=== PATIENT | male | born 1960 | race Caucasian/White ===

== ENCOUNTER → 2016-09-21 | Outpatient (CLI) | payer OTHER ==
[~2016-09-21] MED LIST: LISI-729 PO; PRED20TA PO; VNTHFA/IN INH
--- NOTE | 2016-09-22 06:31 | PAP/PSG TECHNICIAN REPORT ---
[facility] Celery Cutter Polysomnogram Report Study name: None Report date: 09/22/2016 Study date: 09/21/2016 Referring Physician: Zelda Guzman M.D. Name: AZEB HOUSTON Barbra Interpreting Physician: Franco Guzman M.D. Date of : 1960 Celery Cutter: VONNIE Pan. Sex: Male Age: 56 StudyType: PSG PAP Weight: 306 lbs Height: 56 years, Height 6' 0" Neck Circum: BMI: 41.5 Medications: Prinivil 5mg, Albuterol 108mcg/act Patient History Study started on room air with BIPAP 18/14 in room #6. ETCO2 could not be monitored with Bipap. 56 yr old male here tonight for a bipap titration study . He had a split study on 10/25/2011 that had an AHI of 108 and a split night psg was performed and he was treated with bipap with a setting of 18/14. He has been compliant with treatment but never wakes up feeling rested and complains of EDS. He is here tonight to see if he is having nocturnal hypoxemia and / or PLMD. His neck circ=20.75inches. Parameters Monitored NPSG: E1-M2, E2-M1, Fp1-M2, Fp2-M1, F3-M2, F4-M2, F4-M1, C3-M2, C4-M2, C4-M1, O1-M2, O2-M2, O2-M1, T3-M2, T4-M1, P3-M2, P4-M1, CHIN1, CHIN2, HR, EKG, Legs, PFLOW, SNOR, FLOW, CFLOW, Tidal Volume, THOR, ABDO, SpO2, PLTH, CPRESS, ETCO2 Wave, ETCO2, pH Sleep Architecture Sleep Stages Time at Lights Off 8:40:48 PM STAGES Time (min.) TST (%) Time at Lights On 5:30:48 AM Wake 58.5 -- Total Recording Time (TRT) 530.00 min. N1 25.5 5 Total Sleep Period (TSP) 511.5 min. N2 283.5 60 Total Sleep Time (TST) 471.0min. N3 73.0 15 Awake Time 59.0 min. REM 89.0 19 Wake after Sleep Onset 52.0 min. Sleep Efficiency (SE) 89 % Sleep Onset Latency (ROSENDO) 7.0 min. Number of Stage 1 Shifts None Awakenings 30 Stage Changes 113 Number of REM periods 12 REM 89.0 19 REM Latency 124.5 min. NREM 382.0 81 Body Position Analysis Supine Right Left Side Prone Vertical Total Sleep Time (min.) 249.9 95.1 0.0 95.11 176.6 0.0 Total Sleep Time (%) 47% 20% 0% 20 33% N/A% Total Sleep Time REM (min.) 74.5 0.0 0.0 None 14.5 0.0 Total Sleep Time NREM (min.) 145.8 95.1 0.0 None 141.1 0.0 Intermittent Wake (min.) 29.7 7.8 0.0 None 21.0 0.0 Total Sleep Period (%) 47% None None None None None Arousals Myoclonus (PLM) * Events Count Index Events Count Index Spontaneous 31 4 Events Awake (PLMW) 54 55.4 Respiratory 4 0.5 Events Asleep w/ Arousal (PLMA) 40 5.1 PLM 39 5 Events Asleep w/o Arousal (PLMS) 191 24.3 Snoring 2 0 Total Asleep 231 29.4 Total 76 10 Total 285 32 Respiratory Analysis * CA OA MA CH H RERA Total Count 0 1 0 0 7 0 8 Index 0.0 0.1 0.0 0 0.9 0 1.0 Mean Duration 0.0 13.3 0.0 0.00 25.0 0.0 23.6 Longest Duration 0.0 13.3 0.0 0.00 0.0 0.0 52.7 Respiratory Event Summary Total Supine ~Supine Right Left Prone REM NREM Apneas Count 1 1 0 0 N/A 0 0 1 Index 0.1 0 0 0.0 N/A 0 0 0 Hypopneas (4% Desat) Count 7 6 1 0 N/A 1 0 7 Index 0.9 1.6 0 0.0 N/A 0.4 0.0 1.1 Apneas & All Hypopneas Count 8 7 1 0 N/A 1 0 8 Index 1.0 2 0 0 N/A 0 0.0 1.3 Respiratory Events (Campaign Specialist+All Hyp+RERA) Count 8 7 1 0 N/A 1 0 8 Index 1.0 2 0 0.0 N/A 0.4 0.0 1.3 Respiratory Related Arousal Count 4 7 1 0 N/A 1 0 4 Index 0.5 1 0 0 N/A 0 0 1 Snoring Analysis Supine Right Left Prone REM NREM Total Snore duration 1.2 min Snores count 50 1 N/A 4 6 49 55 Snore mean duration 1.3 Sec Snores index 14 1 N/A 2 4.0 7.7 7.0 TST with snoring (%) 0.2% Desaturation Event Summary: Minimum %SpO2 Event Count Mean/Min/Max Duration(sec.) Desaturation Index % Time In Bed > 90 35 26.0 / 8.8 / 60.0 4.7 86.1 86 - 90 2 12.1 / 9.0 / 15.3 1.7 13.9 81 - 85 0 N/A 0.0 0.0 76 - 80 0 N/A 0.0 0.0 71 - 75 0 N/A 0.0 0.0 66 - 70 0 N/A 0.0 0.0 61 - 65 0 N/A 0.0 0.0 56 - 60 0 N/A 0.0 0.0 51 - 55 0 N/A 0.0 0.0 < 50 0 N/A 0.0 0.0 Total REM NREM Awake <50% 0.0 min. 0.0 min. 0.0 min. 0.0 min. 51 - 60% 0.0 min. 0.0 min. 0.0 min. 0.0 min. 61 - 70% 0.0 min. 0.0 min. 0.0 min. 0.0 min. 71 - 80% 0.0 min. 0.0 min. 0.0 min. 0.0 min. 81 - 90% 72.6 min. 0.6 min. 64.6 min. 7.5 min. 91 - 100% 451.0 min. 88.3 min. 312.8 min. 49.9 min. Average 93 93 93 93 Minimum SpO2 87 90 87 87 Desaturation Event Index 4.2 1.3 4.6 6.2 # Desat. Events below 89% 1 N/A 1 N/A Time(%) with Saturation below 89% 2.4 0.0 2.3 0.1 Time(min.) with Saturation below 89% 12.5 0.0 12.2 0.3 Time (mins) REM (mins) NREM (mins) % of TST SpO2 Below 90% 9 1 N8 8.1 SpO2 Below 88% 0 0 0 0 Heart Rate Analysis Min (bpm) Max (bpm) Average (bpm) Awake 50 127 64 NREM 48 90 59 REM 45 127 56 Overall 45 127 58 Supplemental O2 Values Minimum O2 level: None Value Start Time End Time Celery Cutter Comments Mr. Houston slept in the right, supine and prone positions. Cardiac arrhythmia and PLM's noted, please see print outs. No bruxism noted. PAP initiated at an IPAP of +18 CMH2O and an EPAP of +14 CMH2O and up titrated to: IPAP +17RJJ1L, EPAP +15 CMH2O for six respiratory events and some mild snoring. He brought his own full face mask to be used during titration. He did not use the restroom during the night. He stated that he slept better than usual. The final report will be interpreted and signed by a sleep physician. The completed physician report will then be placed in the patient medical record. Therapy Event: Therapy (cm H20) Total Time at Pressure (min.) 490.2 39.3 TST at Pressure (min.) 445.2 25.8 # Periods 1 1 Sleep Onset (min.) 7.0 0.0 REM Onset (min.) 131.5 14.3 Sleep Efficiency % 90 65 Wakefulness (%) 9.2 34.4 Wakefulness (min.) 45.0 13.5 NREM 1 (%) 4.4 10.2 NREM 1 (min.) 21.5 4.0 NREM 2 (%) 55.8 24.9 NREM 2 (min.) 273.7 9.8 NREM 3 (%) 14.9 0.0 NREM 3 (min.) 73.0 0.0 REM (%) 15.7 30.6 REM (min.) 77.0 12.0 # Arousals 71 5 Arousal Index 9.6 11.6 # Snore 32 23 Snore Index 4.3 53.6 AHI 0.9 2.3 AHI Supine 1.9 2.3 AHI Non-Supine 0.2 N/A NREM AHI 1.1 4.4 REM AHI 0.0 0.0 RDI 0.9 2.3 # Obstructive 1 0 # Central Ap 0 0 # Mixed 0 0 # Hypopneas 6 1 RERAS 0 0 Total Respiratory Events 7 1 Time Below SpO2 89.00% (min.) 12.2 0.0 Mean NREM SpO2 (%) 93 95 Mean REM SpO2 (%) 93 94 Mean Sleep SpO2 (%) 93 95 Min NREM SpO2 (%) 87 92 Min REM SpO2 (%) 90 92 Position Supine (min.) 194.5 25.8 Position Non-supine (min.) 250.7 0.0 LM Index Sleep 30.7 7.0 LM Index NREM 35.8 0.0 LM Index REM 6.2 15.0 Mean Heart Rate (bpm) 59 55 Min Heart Rate (bpm) 46 45
--- NOTE | 2016-09-29 09:19 | POLYSOMNOGRAPH REPORT ---
REFERRING PERSON: Dr. Kain Guzman. WELDER FITTER APPRENTICE: Jeannie Carpenter. HISTORY OF PRESENT ILLNESS: Mr. Houston is a 56-year-old male sent to the sleep lab for a titration study. He is currently on bilevel therapy at at home. He had a split night sleep study performed on 10/25/2011 which showed a pretreatment AHI of 108. Despite using BiPAP regularly, he never wakes feeling rested and complains of excessive daytime sleepiness. This study was done tonight to ensure he is on adequate pressure as well as to evaluate him for nocturnal hypoxemia as well as periodic limb movements of sleep. Following the technical and digital specifications of the [place] [employer] (AASM) a standard diagnostic polysomnogram was performed monitoring EEG, EOG, EMG (chin and leg deviations), oxygen saturation, body position, digital video, respiratory effort and airflow.? The sleep Stage and event scoring was based on the AASM Manual for the Scoring of Sleep and Associated Events 2007 edition.? Apneas are defined as a drop in the peak thermal sensor excursion by >90% of baseline for at least 10 seconds.? Hypopneas were scored using the 4% oxygen desaturation rule (4A-[employer]ic[employer]) and a decrease in the nasal pressure excursions by >30% of baseline for at least 10 seconds.? Respiratory effort-related arousal (RERA's) is defined as a sequence of breaths lasting at least 10 seconds characterized by increasing respiratory effort or flattening of the nasal pressure waveform leading to an arousal from sleep when the sequence of breaths does not meet criteria for an apnea or hypopnea.? Apnea Hypopnea index (AHI) is defined as the number of apneas and hypopneas occurring in an hour of sleep.? Respiratory disturbance index (RDI) is defined as the number of apneas, hypopneas, and RERA's occurring in an hour of sleep. This patient's total sleep period time was 511.5 minutes. Total sleep time was 471 minutes. Sleep efficiency was 89%. Latency to sleep onset was 7 minutes with wake after sleep onset of 52 minutes. Total non-REM sleep time was 382 minutes. He spent 5% of that time in N1 sleep, 60% in N2 sleep and 15% in N3 sleep. REM latency was 124.5 minutes. Total REM sleep time was 89 minutes or 19% of total sleep time. There were 76 cortical arousals from sleep. Two of these arousals were due to snoring, 39 due to periodic limb movements of sleep, 4 were due to respiratory events, and 31 were spontaneous. There were 231 periodic limb movements noted on this test. Limb movement index was 29.4. Limb movement with arousal index was 5.1. There were no central, 1 obstructive and no mixed apneas on this test. There were 7 hypopneas and no RERA. Apnea-hypopnea index on this titration was 1. Fifty five snoring events were recorded. Total sleep time with snoring was 0.2%. Mean saturation during sleep was 93% with desaturations to 87%. Saturations in total were less than 89% for 12.5 minutes of recorded time. There was no cardiac ectopy noted on this study other than occasional PACs. Titration was started on a BiPAP pressure of 18/14 and he was only up-titrated to 19/15 during the course of the night. This was at the very end of the night when the patient had a few hypopneic events. On 18/14, this patient had an AHI and RDI of 0.9 respectively. There were 12.2 minutes of saturations less than 89%. When he was increased to 19/15, he was observed for 25.8 minutes. Twelve of those minutes was spent in REM sleep. AHI and RDI on this pressure were both 2.3 and there were no desaturations less than 89%. IMPRESSION AND PLAN: 1. A 56-year-old male with very severe sleep apnea who appears to have resolution of his nocturnal hypoxemia as well as apnea on a bilevel therapy pressure of 19/15. I would reset his device to this level. A download from his machine can be reviewed in 1 month both to check compliance as well as AHI and further pressure adjustments can occur at that time. 2. The patient did have some periodic limb movements of sleep on this test. There were 39 periodic limb movements that did lead to arousals. However, his limb movement with arousal index was normal at 5.1. Clinical correlation is needed.
== END | disposition home or self-care (01) ==
LOC: C.NEUR 20:00
PROVIDERS: ATTEND Family Medicine
DX: G47.36 Sleep related hypoventilation in conditions classified elsewhere (principal); G47.61 Periodic limb movement disorder

== ENCOUNTER 2016-11-23 18:16 | Emergency (ER) | payer OTHER ==
[~2016-11-23] VITALS: Ht 182.9 cm; Wt 137.5 kg
[~2016-11-23 18:16] MED LIST changes: -PRED20TA PO; -VNTHFA/IN INH
[2016-11-23 18:23] VITALS: TEMP 36.7; Ht 182.9 cm; Wt 137.5 kg
[2016-11-23] MEDS ORDERED: ALBUT/IPRATROP 3MG/0.5MG NEB 3 ML VIAL INH STA (18:31)
--- NOTE | 2016-11-23 18:44 | EMERGENCY ROOM VISIT NOTE ---
History Report prepared by Catherine: Junior Salcedo Under the Supervision of: Dr. Cameron North M.D. First contact with patient: 18:27 Chief Complaint: SHORTNESS OF BREATH Stated Complaint: SOB Nursing Triage Summary: Pt states, "I am having trouble breathing. It started around noon. I've had a little bit of a cold. This happened to before and I had bronchitis." Cough of clear sputum. History of Present Illness The patient is a 56 year old male who presents to the Emergency Room with complaints of shortness of breath that started earlier today. The shortness of breath is exacerbated with exertion. He has some pain in his chest. The patient has had cold symptoms for the past two days, including cough and rhinorrhea. The cough is productive. He denies any fevers. The patient's daughter had similar cold symptoms. The patient has a history of bronchitis for which he has been in the ED in the past. Breathing treatments helped him for bronchitis before. The patient has a leftover inhaler from the last time he had bronchitis. He denies any underlying chronic lung disease. Source of History: patient Onset: today Position: other (respiratory) Quality: other (short of breath) Modifying Factors (Worsening): exertion Associated Symptoms: + chest pain, + cough, No fevers Review of Systems See HPI for pertinent positives & negatives. A total of 10 systems reviewed and were otherwise negative. Past Medical & Surgical Medical Problems: (1) Benign hypertension (2) Kidney stone Family History Cancer FH: kidney disease Hypertension Kidney stones Social History Smoking Status: Former Smoker Marital Status: Housing Status: lives with family Current/Historical Medications Scheduled Albuterol Hfa (Ventolin Hfa), 3 PUFFS INH Q4H Lisinopril (Zestril), 5 MG PO QPM Prednisone (Prednisone), 2 TAB PO DAILY Scheduled PRN Albuterol Hfa (Ventolin Hfa), 2 PUFFS INH Q6H PRN for SOB/Wheezing Allergies Coded Allergies: No Known Allergies (Verified , 05/11/16) Physical Exam Vital Signs Date Time Temp Pulse Resp B/P Pulse Ox O2 Delivery O2 Flow Rate FiO2 11/23/16 19:45 82 20 132/83 96 11/23/16 18:23 36.7 78 20 160/101 96 Room Air Physical Exam GENERAL: Patient is in no acute distress. HEENT: No acute trauma, normocephalic atraumatic, mucous membranes moist, no nasal congestion, no scleral icterus. NECK: No stridor, no adenopathy, no meningismus, trachea is midline. LUNGS: Decreased breath sounds bilaterally, breath sounds are equal, no wheezing or rhonchi, no respiratory distress. HEART: Without murmurs gallops or rubs, regular rate and rhythm. CHEST: Tender across the anterior chest wall. ABDOMEN: Soft, nontender, bowel sounds positive, no hernias, no peritonitis. EXTREMITIES: No cyanosis or edema, full range of motion of all the joints without pain or difficulty, no signs for acute trauma. NEUROLOGIC: Oriented x 3, no acute motor or sensory deficits, no focal weakness. SKIN: No rash, no jaundice, no diaphoresis. Medical Decision & Procedures ER Provider Diagnostic Interpretation: X-ray results as stated below per interpretation by me and the radiologist: CHEST ONE VIEW PORTABLE CLINICAL HISTORY: sob dyspnea COMPARISON STUDY: 05/11/2016 FINDINGS: The bones soft tissues and hemidiaphragms are normal. The cardiomediastinal silhouette is normal. The lungs are clear. The pulmonary vasculature is normal. IMPRESSION: Negative chest. Electronically signed by: Yousif Bryan M.D. 11/23/2016 7:06 PM Dictated Date/Time: 11/23/2016 7:06 PM Medications Administered Medications (Trade) Dose Ordered Sig/Inki Route Start Time Stop Time Status Last Admin Dose Admin Albuterol/ Ipratropium (Duoneb) 3 ml NOW STAT INH 11/23/16 18:31 11/23/16 18:33 DC 11/23/16 18:45 3 ML Prednisone (PredniSONE TAB) 40 mg NOW STAT PO 11/23/16 18:31 11/23/16 18:33 DC 11/23/16 18:44 40 MG Albuterol (Ventolin Hfa Inhaler) 3 puffs NOW ONCE INH 11/23/16 19:30 11/23/16 19:31 DC 11/23/16 19:30 3 PUFFS ED Course 1829: The patient was evaluated in room A2. A complete history and physical exam was performed. 1830: Prednisone 40 mg PO, DuoNeb 3 ml INH. 1914: Reevaluated the patient. Discussed results and discharge instructions: He verbalized understanding and agreement. The patient is will be prepared for discharge. 1930: Albuterol 3 puffs INH. Medical Decision Differential diagnosis includes pneumonia or bronchitis, viral illness, pneumothorax, CHF, influenza. The patient presents with cold symptoms and some shortness of breath. He has been coughing. He has a history of bronchitis in this illness feels similar. Chest film does not show pneumonia or CHF. The patient was not hypoxic, toxic or febrile. The patient was given a DuoNeb, albuterol via MDI and oral prednisone. This has helped him in the past. He is being discharged home. Antibiotics are not indicated currently. Impression Primary Impression: Acute bronchitis Scribe Attestation The scribe's documentation has been prepared under my direction and personally reviewed by me in its entirety. I confirm that the note above accurately reflects all work, treatment, procedures, and medical decision making performed by me. Departure Information Dispostion Home / Self-Care Prescriptions Albuterol Hfa (VENTOLIN HFA) 200 Puffs/83989 Mcg Aers 3 PUFFS INH Q4H, #1 INHALER Prov: Cameron North M.D. 11/23/16 Prednisone (Prednisone) 20 Mg Tab 2 TAB PO DAILY for 5 Days, #10 TAB Prov: Cameron North M.D. 11/23/16 Referrals No Doctor, Assigned (PCP) Forms HOME CARE DOCUMENTATION FORM, IMPORTANT VISIT INFORMATION Patient Instructions My [facility] Additional Instructions prednisone as directed rest albuterol 3 puffs every 4 hours return if worsening or start running fevers follow with your doctor for a recheck and recheck of your blood pressure--it was higher today
[2016-11-23] MEDS ORDERED: VNTHFA/IN INH ×2 (19:04→19:26)
--- NOTE | 2016-11-23 19:08 | DIAGNOSTIC IMAGING REPORT ---
CHEST ONE VIEW PORTABLE CLINICAL HISTORY: sob dyspnea COMPARISON STUDY: 05/11/2016 FINDINGS: The bones soft tissues and hemidiaphragms are normal. The cardiomediastinal silhouette is normal. The lungs are clear. The pulmonary vasculature is normal. IMPRESSION: Negative chest. Electronically signed by: Yousif Bryan M.D. 11/23/2016 7:06 PM Dictated Date/Time: 11/23/2016 7:06 PM
[2016-11-23] MEDS ORDERED: PRED20TA PO (19:26)
[2016-11-23] MEDS ORDERED: ALBUTEROL HFA 8 GM INHALER INH ONE (19:30)
[2016-11-23 19:45] VITALS: BP 132/83; PULSE 82; O2SAT 96
== END 2016-11-23 19:47 | disposition home or self-care (01) ==
LOC: C.EDB 18:17 → C.EDA 19:47
DX: J20.9 Acute bronchitis, unspecified (principal); I10 Essential (primary) hypertension; Z87.442 Personal history of urinary calculi; Z87.891 Personal history of nicotine dependence; Z82.49 Family history of ischemic heart disease and other diseases of the circulatory system; Z84.1 Family history of disorders of kidney and ureter

== ENCOUNTER 2017-06-19 21:23 | Emergency (ER) | payer OTHER ==
[~2017-06-19] VITALS: Ht 182.9 cm; Wt 136.8 kg
[~2017-06-19 21:23] MED LIST changes: +VNTHFA/IN INH
[2017-06-19 21:25] VITALS: BP 152/91; TEMP 36.8; Ht 182.9 cm; Wt 136.8 kg
--- NOTE | 2017-06-19 22:12 | DIAGNOSTIC IMAGING REPORT ---
L HEEL MIN 2 VIEWS CLINICAL HISTORY: Left heel pain. COMPARISON: None FINDINGS: There is mild posterior calcaneal spurring. No calcaneal fracture or osseous lesion is identified by radiography. IMPRESSION: 1. No calcaneal fracture. 2. Mild posterior calcaneal spurring. Electronically signed by: Tomy Ellsworth M.D. 06/19/2017 10:11 PM Dictated Date/Time: 06/19/2017 10:10 PM
[2017-06-19 22:56] VITALS: PULSE 94; O2SAT 95
--- NOTE | 2017-06-20 02:56 | EMERGENCY ROOM VISIT NOTE ---
ED Visit Note First contact with patient: 21:31 Chief Complaint: I hurt my left heel. History of Present Illness: Mr. Houston is a 56-year-old white male who ambulates into the ED complaining of left heel pain. Remotely patient reports approximately 2 weeks ago he accidentally tripped and fell and injured his right lower leg. He reports he has not seen any pain or swelling since the fall. He reports he was working today; a new job requiring walking into a concrete area, and he developed left heel pain. Patient reports that rest he is having a mild achy sensation over the posterior aspect of the left calcaneus. With ambulation and palpation he develops a sharp pain in this area. He rates this discomfort 7/10. His pain is nonradiating. His pain improves when he is nonweightbearing or palpating the calcaneus. He has not taken any medication for pain prior to arrival at the hospital. He denies any associated symptoms including ankle pain, other foot pain, swelling, redness, previous significant injuries or surgeries to the calcaneus. Review of Systems: As noted above in history of present illness. Past Medical History: Hypertension, bronchitis Current Medications: Zestril, albuterol. Allergies to Medications: Patient denies. Social History: Patient is currently employed; he feels safe in his home environment; he denies tobacco and alcohol use. Physical Examination: Vital Signs: Date Time Temp Pulse Resp B/P (MAP) Pulse Ox O2 Delivery O2 Flow Rate FiO2 06/19/17 22:56 94 18 95 Room Air 06/19/17 21:25 36.8 100 18 152/91 94 Room Air GENERAL: 56-year-old male in no acute distress, nontoxic-appearing, afebrile and hemodynamically stable. NEUROLOGICAL: Awake, alert and oriented to person, place and time. Answering questions appropriately and following commands. SKIN: Warm, dry and pink. No soft tissue eruptions or trauma noted. LEFT LOWER EXTREMITY: No gross bony deformity. No tenderness through the ankle , the Achilles tendon, mid or distal foot. Moderate tenderness over the plantar calcaneus without bony deformity, bony crepitus, swelling or ecchymosis. No soft tissue injuries. Full range of motion in flexion, extension, inversion and eversion of the ankle and flexion and extension of all toes. Throughout the foot the skin was warm and pink and capillary refill is brisk. He was able to distinguish light sensations through all dermatomes. ED Course: Patient is assessed as noted above. Patient's medication list was reviewed. Patient was offered pain medication and refused. Left Heel X-Rays: Were read by myself and the radiologist showing no acute fractures or dislocations. There is a mild posterior calcaneal spurring but no plantar spurring. Patient was offered nonweight bearing crutches and refused. Patient was educated about today's findings and instructed on his treatment plan ; he verbalized understanding or agreement with this plan. Clinical Impression: Left calcaneus pain. Disposition: Patient discharged home in stable condition; prior to departure he was reassessed and subjectively reported he was feeling the same. Plan: Offered measures including rest, ibuprofen and acetaminophen and ice were discussed with the patient. Patient was encouraged to use a well formed solid soled shoe. 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 Patient was encouraged return ED for worsening/uncontrolled pain, skin redness/ swelling, fevers or any new/concerning symptoms.
== END 2017-06-19 22:57 | disposition home or self-care (01) ==
LOC: C.EDB 21:23 → C.EDD 22:57
DX: M77.32 Calcaneal spur, left foot (principal); M25.572 Pain in left ankle and joints of left foot; I10 Essential (primary) hypertension; Z79.899 Other long term (current) drug therapy

== ENCOUNTER 2019-07-29 07:29 | Inpatient (IN) ==
--- NOTE | 2019-07-08 14:50 | PAT Medication Instructions ---
Medication Instructions Date of Service July 08, 2019 Home Medications Medication Instructions Recorded carbidopa 25 mg-levodopa 100 mg See Rx Instructions PO BID 90 Days 07/08/19 tablet #180 tab armodafinil 200 mg tablet 200 mg PO QAM tamsulosin 0.4 mg capsule 0.4 mg PO QAM cholecalciferol (vitamin D3) [Vitamin D3] 10,000 unit PO QAM hydrocodone-acetaminophen 1 tab PO Q6H PRN lisinopril 5 mg PO QAM carbidopa 25 mg-levodopa 100 mg tablet See Rx Instructions PO BID DO NOT take the morning of surgery armodafinil 200 mg tablet 200 mg PO QAM cholecalciferol (vitamin D3) [Vitamin D3] 10,000 unit PO QAM lisinopril 5 mg PO QAM Take morning of surgery With a small sip of water, OTHERWISE NOTHING TO EAT OR DRINK AFTER MIDNIGHT: tamsulosin 0.4 mg capsule 0.4 mg PO QAM hydrocodone-acetaminophen 1 tab PO Q6H PRN (okay to take up to 4 hours prior to surgery if needed) carbidopa 25 mg-levodopa 100 mg tablet See Rx Instructions PO BID Take evening before surgery hydrocodone-acetaminophen 1 tab PO Q6H PRN (if needed) carbidopa 25 mg-levodopa 100 mg tablet See Rx Instructions PO BID Other Notes If you have any questions please call us at [phone] or [phone] or [phone] or [phone]
--- NOTE | 2019-07-09 12:15 | Anesthesiology Consultation ---
Date of Service July 09, 2019 Assessment & Plan (1) Encounter for pre-operative examination: Neurology: 05/08/19: restless legs vs. dystonia, bilateral foot pain-patient has unusual movements in his feet related to pain in a peripheral neuropathy pattern however EMG is negative. Cannot rule out small fiber neuropathy uncertain cause and workup was negative. 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 We discussed treatment options. Gabapentin 600 milligram BID has not helped and giving him side effects. We discussed weaning off this by 300 milligram every 3 days until off. After that recommend holding armodafinil for about a week to see if there this would be causing side effects. If not better recommend starting Sinemet 25/100 milligram BID for 2-3 days then 2 tablets BID and titrate if needed." Subsequently at PAT visit (07/09/19), patient has since discontinued gabapentin and Sinemet. Symptoms still present. Patient still taking armodafinil. Symptoms felt possibly related to back issues/reason for upcoming lumbar surgery. Chart Review Chart Review: Acceptable Risk for Surgery and Patient seen in Pre Admission Testing Teaching & Discussion Pre-Anesthesia Teaching/Discussion Notes: Instructed NPO after midnight before surgery,except medications with 15 cc of water. Medication instructions provided according to the [facility] guidelines. History Surgery Operation Date: 07/29/19 07:30 Proposed Procedures p L3-L4, L4-L5, L5-S1 Laminectomy and Fusion - Dylon Patel DO Height/Weight Height: 6 ft Weight: 136 kg Allergies Allergy/AdvReac Type Severity Reaction Status Date / Time No Known Allergies Allergy Verified 07/09/19 11:08 Medications Home Medications Medication Instructions Recorded Confirmed Last Taken armodafinil 200 mg tablet 200 mg PO QAM tab 03/04/19 07/09/19 Unknown tamsulosin 0.4 mg capsule 0.4 mg PO QAM #30 cap 03/04/19 07/09/19 Unknown cholecalciferol (vitamin D3) 10,000 unit PO QAM 07/02/19 07/09/19 Unknown [Vitamin D3] lisinopril 5 mg PO QAM 07/02/19 07/09/19 Unknown carbidopa 25 mg-levodopa 100 mg 1 - 2 tab PO BID 90 Days #180 tab 07/09/19 Unknown tablet glucosamine-chondroitin 250 mg-200 2 tab PO DAILY tab 07/09/19 07/09/19 Unknown mg tablet Past Medical History Medical History BPH (benign prostatic hyperplasia) Dystonia restless legs vs. dystonia, bilateral foot pain-patient has unusual movements in his feet related to pain in a peripheral neuropathy pattern however EMG is negative/neurology monitoring History of kidney stones Hypertension Morbid obesity Obstructive sleep apnea, adult BIPAP Spinal stenosis Exercise / Class Metabolic Activity III < 4 Walking/Shop/Light housework Past Family History Family History Father No pertinent family history Mother No pertinent family history Past Surgical History Surgical History History of cervical discectomy History of colonoscopy History of excision of pilonidal cyst History of shoulder surgery LT - MULTIPLE History of tooth extraction S/P tonsillectomy Past Anesthesia History No Family Hx of Anesthesia Complications and Other Patient: Patient thinks he might have been slow to wake after general anesthesia with previous shoulder surgery 7+ years ago. No further details. No issues with subsequent surgeries/anesthesia. History of PONV History of PONV (+ post-op nausea) Social History Smoking Status: Former smoker Do You Dip or Chew Tobacco: No Smoking End Date: QUIT 12 YEARS AGO Hx Alcohol Use: No Hx Substance Use: No substance use type: does not use Review of Systems Patient denies chest pain, shortness of breath, reflux, cough, wheezing, palpita tions. Physical Exam Vital Signs VITALS BP 138/75 P 57 TEMP 98.0 SP02 94%RA RESP 16 PHYSICAL Full neck and c-spine range of motion. Full TMJ range of motion. TMD 3 finger breaths Mallampati Score 3 Dentition: several missing including rotted/chipped front teeth, poor dentition Lungs: clear throughout to auscultation Cardiac: regular rate and rhythm, no murmurs noted Spine: normal Carotid arteries: negative bruit Extremities: no edema Testing Laboratory Results 07/09/19 12:42 07/09/19 12:42 PT 10.0 Seconds (9.0-12.0) 07/09/19 12:42 INR 1.0 (0.9-1.1) 07/09/19 12:42 APTT 25.1 Seconds (21.0-31.0) 07/09/19 12:42 Blood Type O Positive 07/09/19 12:42 Antibody Screen NEGATIVE 07/09/19 12:42 Electrocardiogram Date: 07/09/19 SB at 57bpm. iRBBB. Chest X-Ray Date: 07/09/19 Findings: + NAD Echocardiogram Date: 08/02/17 LVEF 55-59%. No RWMA. Grade I DD. Mildly increased cLV wall thickness. Mildly enlarged aortic root and proximal ascending aorta (4.0/4.2cm). No significant valvular disease.
--- NOTE | 2019-07-09 13:17 | XRay Report ---
XR chest Pre-admission PA/Lat CLINICAL HISTORY: PAT COMPARISON STUDY: No previous studies for comparison. FINDINGS: The bones soft tissues and hemidiaphragms are normal. The cardiomediastinal silhouette is n ormal. The lungs are clear. The pulmonary vasculature is normal. IMPRESSION: Negative chest. The above report was generated using voice recognition software. It may contain grammatical, syntax or spelling errors. Electronically signed by: Yousif Bryan M.D. 07/09/2019 1:16 PM
[2019-07-09 14:23] LABS: Basophils # (auto) 0.03 K/uL (0-0.2); Basophils % (auto) 0.5 %; Eosinophils # (auto) 0.16 K/uL (0-0.5); Eosinophils % (auto) 2.7 %; Hematocrit (blood only) 41.2 % (42-52); Immature Granulocytes # (auto) 0.01 K/uL (0.00-0.02); Immature Granulocytes % (auto) 0.2 %; Lymphocytes # (auto) 1.34 K/uL (1.2-3.4); Lymphocytes % (auto) 22.7 %; Mean Corpuscular Hemoglobin 31.8 pg (25-34); Mean Corpuscular Volume 93.6 fL (80-100); Mean Platelet Volume 11.7 fL (7.4-10.4); Monocytes # (auto) 0.54 K/uL (0.11-0.59); Monocytes % (auto) 9.2 %; Neutrophils # (auto) 3.82 K/uL (1.4-6.5); Neutrophils % (auto) 64.7 %; Platelet Count 190 K/uL (130-400); RDW Coefficient of Variation 12.9 % (11.5-14.5); RDW Standard Deviation 43.5 fL (36.4-46.3)
[2019-07-09 14:33] LABS: Partial Thromboplastin Ratio 0.9; Partial Thromboplastin Time 25.1 Seconds (21.0-31.0)
[2019-07-09 15:12] LABS: BUN Creatinine Ratio 12.1 (10-20); Calcium 9.1 mg/dl (8.5-10.1); Est GFR (African American) 112.4; Est GFR (Non-African American) 96.9; Potassium 3.9 mmol/L (3.5-5.1)
--- NOTE | 2019-07-26 11:43 | History and Physical Report ---
DATE OF ADMISSION: 07/29/2019 CHIEF COMPLAINT: Back and lower extremity difficulty, paresthesias, inability to ambulate. HISTORY OF PRESENT ILLNESS: Nikhil is delightful. He is 58. He is miserable. He has failed all sorts of conservative care. We have come to a mutual agreement that surgery is a reasonable option for him. Of course, there is no guarantee. PAST MEDICAL HISTORY: Hypertension, diabetes negative. No heart disease, no problems with anesthesia. No anxiety. Also, positive for obesity. PAST SURGICAL HISTORY: Shoulder surgery x2, neck surgery x1. FAMILY HISTORY: Negative. SOCIAL HISTORY: . No alcohol. Moderate tobacco 35+ years, 2 packs daily. REVIEW OF SYSTEMS: Positive for fatigue. Ear, nose and throat negative. No chest pain or shortness of breath. No nausea or vomiting. No bowel and bladder dysfunction. He has back pain, lower extremity difficulty, paresthesias, numbness and tingling. MEDICATIONS: Listed and reviewed and scanned. PHYSICAL EXAMINATION: GENERAL: He is 6 feet. He is 300 pounds. VITAL SIGNS: Blood pressure 140/80, pulse 80, respirations 16. HEENT: Pupils react to light and accommodation. Ear, nose and throat clear. CARDIAC: No arrhythmias. Normal S1, S2. ABDOMEN: Obese, but nontender. EXTREMITIES: Intact with some paresthesias, numbness and tingling, but no gross weakness. He does have diminished reflexes. X-RAYS: Demonstrate stenosis and instability, lumbar spine. PLAN: Includes laminectomy and fusion of L3-S1 lumbar spine.
[~2019-07-29 07:29] MED LIST changes: +ACETAMINOPHEN 1,000 MG/100 ML VIAL IV SCH; +CEFAZOLIN 3000MG 72.5 ML IV SCH; -LISI-729 PO; +LR 15ML/HR IV SCH; +SODIUM CHLORIDE 0.9% 1000ML IV SCH; -VNTHFA/IN INH
[2019-07-29] MEDS ORDERED: NEOSTIGMINE METHYLSULFATE 5 MG/5 ML SYR ONE (09:27)
[2019-07-29] MEDS ORDERED: fentaNYL citrate 100 MCG/2 ML VIAL ONE ×3 (09:27→13:09)
[2019-07-29] MEDS ORDERED: ROCURONIUM BROMIDE 10 MG/ML 5 ML VIAL ONE (09:27)
[2019-07-29] MEDS ORDERED: MIDAZOLAM HCL 1 MG/ML 2ML VIAL ONE (09:27)
[2019-07-29] MEDS ORDERED: LIDOCAINE HCL 2% 2 ML VIAL/AMP(20MG/ML) INFIL ONE (09:27)
[2019-07-29] MEDS ORDERED: LARYING-O-JET KIT (LTA) ONE (09:27)
[2019-07-29] MEDS ORDERED: PROPOFOL IV EMULSION 10 MG/ML 20 ML VIAL IV ONE (09:27)
[2019-07-29] MEDS ORDERED: GLYCOPYRROLATE 0.2 MG/ML VIAL ONE (09:27)
[2019-07-29] MEDS ORDERED: BACITRACIN INJ 50,000 UNIT VIAL ONE (09:46)
[2019-07-29] MEDS ORDERED: VANCOMYCIN HCL 1000MG/20ML VIAL ONE (09:46)
[2019-07-29] MEDS ORDERED: THROMBIN FOR SOLN 20000 UNIT KIT ONE (09:46)
[2019-07-29] MEDS ORDERED: GELATIN SPONGE SZ 100 ONE ×2 (09:46→11:38)
[2019-07-29] MEDS ORDERED: BUPIVACAINE/EPINEPHRINE 0.5% MPF 1:200,000 10 ML VIAL ONE (09:47)
--- NOTE | 2019-07-29 09:47 | History & Physical Bridge Note ---
Date of Service July 29, 2019 History & Physical Bridge Note I have examined the patient, reviewed the History & Physical and in the interval since the performance of the History & Physical I have noted the following changes of clinical significance: no changes noted
[2019-07-29] MEDS ORDERED: ePHEDrine sulfate 50 MG/ML SYR ONE (11:09)
[2019-07-29] MEDS ORDERED: ONDANSETRON INJ 2 MG/ML 2 ML VIAL IV PRN ×2 (12:26→14:53)
[2019-07-29] MEDS ORDERED: fentaNYL citrate 100 MCG/2 ML VIAL IV PRN (12:26)
[2019-07-29] MEDS ORDERED: HYDROmorphone INJ 1 MG/ML SYRINGE IV PRN (12:26)
[2019-07-29] MEDS ORDERED: ATROPINE SULFATE 0.1 MG/ML 10ML SYR IV PRN (12:26)
[2019-07-29] MEDS ORDERED: ePHEDrine sulfate 50 MG/ML AMP IV PRN (12:26)
[2019-07-29] MEDS ORDERED: FLOSEAL HEMOSTATIC MATRIX 10ML TOP ONE (12:56)
--- NOTE | 2019-07-29 13:26 | Post Operative Brief Note ---
PG Immediate Post Op with CF Date of Surgery July 29, 2019 Pre & Post Diagnosis Operation Date: 07/29/19 09:50 Pre-Op Diagnosis: LUMBAR SPINAL STENOSIS Post-Op Diagnosis: LUMBAR SPINAL STENOSIS I identified the patient and participated in the time-out.: Yes Procedure Operation Date: 07/29/19 09:50 Actual Procedures p L3-L4, L4-L5, L5-S1 Laminectomy, Decompression and L3-L5 Fusion(Not Applicable) - Dylon Patel DO Surgeon Dylon Patel, Radio Repairman Leonidas minor Estimated Blood Loss 500 Findings Consistent with Post-Op Diagnosis Specimens Specimen Description: none per surgeon Drains Altman Catheter and Hemovac Drain (10 fr single lumen) Disposition Accompanied Patient To Recovery: No Overlapping Procedure I was immediately available: during the entire case.
--- NOTE | 2019-07-29 13:31 | Operative Report ---
PG Post Operative Report Pre & Post Diagnosis Operation Date: 07/29/19 09:50 Pre-Op Diagnosis: LUMBAR SPINAL STENOSIS Post-Op Diagnosis: LUMBAR SPINAL STENOSIS I identified the patient and participated in the time-out.: Yes Procedure Operation Date: 07/29/19 09:50 Actual Procedures p L3-L4, L4-L5, L5-S1 Laminectomy, Decompression and L3-L5 Fusion(Not Applicable) - Dylon Patel DO Pedicle pedicle screw instrumentation L3-L4-L5. Posterior lateral fusion L3-L4-L5 3 level laminectomy decompression foraminotomies and partial facetectomy Surgeon Dylon Patel DO Systems Spec Leonidas minor Estimated Blood Loss 500 Findings Consistent with Post-Op Diagnosis Severe spinal stenosis and instability Specimens No specimens Anesthesia Type General Description of Procedure Patient was brought successfully to the operating room a general intubated anesthetic provide the patient Successful general intubated anesthetic provided. Fully catheter administered. Patient placed prone on the Danny table. He was scrubbed prepped shaved first and draped sterile. We first scrubbed with a Betadine with ChloraPrep draped sterile. Formal timeout taken Skin incision was made fascial incision divided. Name down on the spinous processes the joints I could find the transverse processes. Comorbidities were significant bleeding through the case morbid obesity. We worked diligently to get all bleeders at every phase of the operation were moderately successful. Decompress the neural elements starting at the 5 S1 interspace up to and including the L3 lamina with a true 3 level laminectomy foraminotomy partial facetectomy. I felt a sense some instability of the lumbar spine and I felt it was appropriate to instrument the spine and we seem successful. Lately got pedicle screws into 5 4 and 3 on the left and 5 4 and 3 on the right the fit and radiographic evaluation was near-anatomic we then bone grafted out of the transverse processes combination of allograft and demineralized bone matrix. We then irrigated thoroughly with approximately 500 cc of fluid placed vancomycin d eep to the wound close fascia the fascia over a Hemovac drain the subcuticular layer closed and a stable gun used on the skin There were no apparent intraoperative complications Blood loss estimated 500 cc Implants used by the [employer] Sponge and needle count correct at the close Bone graft used was combination of morselized autograft and demineralized bone matrix. I attest to the content of the Intraoperative Record and any orders documented therein. Any exceptions are noted below.
--- NOTE | 2019-07-29 14:06 | Fluoroscopy Report ---
FL spine 1V any level CLINICAL HISTORY: L3-L5 laminectomy and fusion. COMPARISON STUDY: Lumbar spine MRI December 26, 2018. FLUOROSCOPY TIME: 12 seconds. FLUOROSCOPIC IMAGES: 1 FINDINGS: Surgical retractors and sponge marker are noted. These images demonstrate a posterior decom pression with pedicle screws at the L3, L4 and L5 levels. IMPRESSION: Fluoroscopic image demonstrating pedicle screws at the L3, L4 and L5 levels. ACT 112: Negative or not required by law. Electronically signed by: Tomy Ellsworth M.D. 07/29/2019 2:04 PM
[2019-07-29] MEDS ORDERED: DO NOT ADMINISTER PNEUMOCOCCAL VACCINE PRN (14:53)
[2019-07-29] MEDS ORDERED: bisacodyL 10 MG SUPP PR PRN (14:53)
[2019-07-29] MEDS ORDERED: NALOXONE HCL 0.4 MG/1 ML VIAL/CARP IV PRN (14:53)
[2019-07-29] MEDS ORDERED: DO NOT ADMINISTER FLU VACCINE PRN (14:53)
[2019-07-29] MEDS ORDERED: ACETAMINOPHEN 1,000 MG/100 ML VIAL IV PRN (14:53)
[2019-07-29] MEDS ORDERED: MAGNESIUM HYDROXIDE SUSP 30 ML UDC PO PRN (14:53)
[2019-07-29] MEDS ORDERED: SOD PHOSPHATE/SOD BIPHOSPHATE ENEMA 132 ML BTL PR PRN (14:53)
[2019-07-29] MEDS ORDERED: FAMOTIDINE 20 MG TAB PO PRN (14:53)
[2019-07-29] MEDS ORDERED: ALUMINUM/MAGNESIUM SUSP 30 ML UDC PO PRN (14:53)
[2019-07-29] MEDS ORDERED: ONDANSETRON 4 MG OD TAB PO PRN (14:53)
[2019-07-29] MEDS ORDERED: HYDROmorphone INJ 0.5 MG/0.5 ML SYR IV PRN (14:53)
[2019-07-29] MEDS ORDERED: PROMETHAZINE HCL 12.5 MG in SODIUM CHLORIDE 0.9% 50 ML IV PRN (14:53)
[2019-07-29] MEDS: KETOROLAC 30 MG/ML VIAL IV SCH ×2 (16:42→21:11)
[2019-07-29] MEDS: CEFAZOLIN 2000MG 2,000 MG/15 ML SYR IV SCH (17:10)
--- NOTE | 2019-07-29 17:34 | Anesthesiology Progress Note ---
Date of Service July 29, 2019 Anesthesia Post Procedure Vital Signs Vital Signs: Temp Pulse Pulse Resp BP Pulse Ox 07/29/19 16:48 36.8 C 59 L 17 139/86 97 07/29/19 15:48 36.7 C 46 L 17 127/72 97 07/29/19 15:13 36.6 C 72 17 111/51 L 94 07/29/19 14:55 36.6 C 75 15 132/75 95 07/29/19 14:30 84 18 131/62 93 07/29/19 14:20 36.4 C L 80 16 130/67 94 07/29/19 14:10 83 16 131/63 95 07/29/19 14:00 76 16 141/66 H 92 07/29/19 13:50 80 16 135/66 95 07/29/19 13:40 82 18 137/68 92 07/29/19 13:30 36.8 C 101 H 18 169/102 H 93 07/29/19 08:08 36.4 C L 62 18 171/98 H 96 Pain Intensity Bilateral Foot: Pain Intensity: 3 Back: Pain Intensity: 2 Transfer of Care Handoff Completed per policy Notes Mental Status: alert / awake / arousable and participated in evaluation Patient Amnestic to Procedure: Yes Nausea / Vomiting: adequately controlled Pain: adequately controlled Airway Patency, RR, SpO2: stable & adequate BP & HR: stable & adequate Hydration State: stable & adequate Anesthetic Complications: no major complications apparent and Pt Satisfied with anesthetic care
[2019-07-29] MEDS: DOCUSATE SODIUM/SENNA 50/8.6MG TAB PO SCH (21:11)
[2019-07-29] MEDS: LACTATED RINGER'S 1,000 ML IV SCH (23:30)
[2019-07-30] MEDS: KETOROLAC 30 MG/ML VIAL IV SCH ×2 (02:01→09:06)
[2019-07-30] MEDS: CEFAZOLIN 2000MG 2,000 MG/15 ML SYR IV SCH (02:01)
[2019-07-30 05:38] LABS: Basophils # (auto) 0.01 K/uL (0-0.2); Basophils % (auto) 0.1 %; Eosinophils # (auto) 0.01 K/uL (0-0.5); Eosinophils % (auto) 0.1 %; Hematocrit (blood only) 36.2 % (42-52); Hemoglobin 12.3 g/dL (14.0-18.0); Immature Granulocytes # (auto) 0.02 K/uL (0.00-0.02); Immature Granulocytes % (auto) 0.2 %; Lymphocytes % (auto) 8.8 %; Mean Corpuscular Hemoglobin 31.1 pg (25-34); Mean Corpuscular Volume 91.4 fL (80-100); Mean Platelet Volume 11.1 fL (7.4-10.4); Monocytes # (auto) 0.89 K/uL (0.11-0.59); Monocytes % (auto) 7.8 %; Neutrophils # (auto) 9.46 K/uL (1.4-6.5); Platelet Count 208 K/uL (130-400); RDW Coefficient of Variation 13.1 % (11.5-14.5); RDW Standard Deviation 43.6 fL (36.4-46.3); Red Blood Count 3.96 M/uL (4.7-6.1); White Blood Count 11.39 K/uL (4.8-10.8)
[2019-07-30] MEDS: POLYETHYLENE (MIRALAX) 17 GM PACK PO SCH ×4 (05:49→23:12)
[2019-07-30] MEDS: LACTATED RINGER'S 1,000 ML IV SCH (05:56)
[2019-07-30 06:14] LABS: BUN Creatinine Ratio 13.3 (10-20); Creatinine Clr Calc Pharmacy 104.3 ml/min; Est GFR (African American) 83.8; Est GFR (Non-African American) 72.3; Potassium 3.8 mmol/L (3.5-5.1)
--- NOTE | 2019-07-30 07:59 | Anesthesiology Progress Note ---
Date of Service July 30, 2019 Anesthesia Post Procedure Vital Signs Vital Signs: Temp Pulse Pulse Resp BP Pulse Ox 07/30/19 07:29 36.6 C 73 16 121/76 95 07/30/19 02:33 37.0 C 82 16 119/70 94 07/29/19 23:27 36.8 C 67 15 126/75 94 07/29/19 20:13 36.6 C 82 20 148/84 H 92 07/29/19 17:50 36.9 C 50 L 18 155/77 H 92 07/29/19 16:48 36.8 C 59 L 17 139/86 97 07/29/19 15:48 36.7 C 46 L 17 127/72 97 07/29/19 15:13 36.6 C 72 17 111/51 L 94 07/29/19 14:55 36.6 C 75 15 132/75 95 07/29/19 14:30 84 18 131/62 93 07/29/19 14:20 36.4 C L 80 16 130/67 94 07/29/19 14:10 83 16 131/63 95 07/29/19 14:00 76 16 141/66 H 92 07/29/19 13:50 80 16 135/66 95 07/29/19 13:40 82 18 137/68 92 07/29/19 13:30 36.8 C 101 H 18 169/102 H 93 07/29/19 08:08 36.4 C L 62 18 171/98 H 96 Pain Intensity Bilateral Foot: Pain Intensity: 3 Back: Pain Intensity: 2 Notes Mental Status: alert / awake / arousable and participated in evaluation Patient Amnestic to Procedure: Yes Nausea / Vomiting: adequately controlled Pain: adequately controlled Airway Patency, RR, SpO2: stable & adequate BP & HR: stable & adequate Hydration State: stable & adequate Anesthetic Complications: no major complications apparent and Pt Satisfied with anesthetic care
[2019-07-30] MEDS: TAMSULOSIN HCL 0.4 MG CAP PO SCH (09:06)
[2019-07-30] MEDS: lisinopriL 5 MG TAB PO SCH (09:06)
[2019-07-30] MEDS: OXYCODONE HCL IR 5 MG TAB (IMMEDIATE RELEASE) PO PRN (19:54)
[2019-07-30] MEDS: DOCUSATE SODIUM/SENNA 50/8.6MG TAB PO SCH (19:55)
[2019-07-31] MEDS: POLYETHYLENE (MIRALAX) 17 GM PACK PO SCH (05:49)
[2019-07-31 07:42] LABS: Basophils # (auto) 0.01 K/uL (0-0.2); Basophils % (auto) 0.1 %; Eosinophils # (auto) 0.05 K/uL (0-0.5); Eosinophils % (auto) 0.6 %; Hematocrit (blood only) 32.9 % (42-52); Hemoglobin 11.2 g/dL (14.0-18.0); Immature Granulocytes # (auto) 0.02 K/uL (0.00-0.02); Immature Granulocytes % (auto) 0.2 %; Lymphocytes # (auto) 1.26 K/uL (1.2-3.4); Lymphocytes % (auto) 15.4 %; Mean Corpuscular Hemoglobin 31.5 pg (25-34); Mean Corpuscular Volume 92.7 fL (80-100); Mean Platelet Volume 11.2 fL (7.4-10.4); Monocytes # (auto) 0.88 K/uL (0.11-0.59); Monocytes % (auto) 10.8 %; Neutrophils # (auto) 5.94 K/uL (1.4-6.5); Neutrophils % (auto) 72.9 %; Platelet Count 165 K/uL (130-400); RDW Coefficient of Variation 13.2 % (11.5-14.5); RDW Standard Deviation 44.9 fL (36.4-46.3); Red Blood Count 3.55 M/uL (4.7-6.1); White Blood Count 8.16 K/uL (4.8-10.8)
[2019-07-31 08:02] LABS: BUN Creatinine Ratio 14.4 (10-20); Calcium 8.9 mg/dl (8.5-10.1); Creatinine Clr Calc Pharmacy 133.9 ml/min; Est GFR (African American) 111.3; Potassium 3.6 mmol/L (3.5-5.1)
[2019-07-31] MEDS: lisinopriL 5 MG TAB PO SCH (08:33)
[2019-07-31] MEDS: TAMSULOSIN HCL 0.4 MG CAP PO SCH (08:33)
[2019-07-31] MEDS: OXYCODONE HCL IR 5 MG TAB (IMMEDIATE RELEASE) PO PRN (08:34)
--- NOTE | 2019-08-01 12:32 | Discharge Summary ---
Nikhil was admitted to my service on 07/29/2019; discharged home on the . Improved stable condition. He had an uneventful course. There were no complications. No issues. He was discharged home on the improved, stable. Wound clean, dry. Neurologically intact. No chest pain, shortness of breath. Images not required. ASSESSMENT: Status post reconstructive surgery. PLAN: He will be discharged home. He has instructions, precautions given to him. He has medication sent to his pharmacy. He has a back brace and a followup.
== END 2019-07-31 10:07 | disposition home or self-care (01) | DRG 460 ==
LOC: ASU 07:29 → 3W 13:28

== ENCOUNTER 2023-08-13 12:47 | Observation (INO) ==
[2023-08-13] MEDS ORDERED: SODIUM CHLORIDE 0.9% 500 ML IV STA (12:53)
[2023-08-13] MEDS ORDERED: KETOROLAC TROMETHAMINE 15 MG/ML VIAL IV STA (12:53)
--- NOTE | 2023-08-13 12:53 | ED Triage Note ---
Date of Service August 13, 2023 Provider in Triage Author: Raul Ybarra History of Present Illness This patient was briefly evaluated while in triage. An abbreviated physical exam was performed. This patient is a 62-year-old Male who presents to the ED for evaluation "I think i have a kidney stone" right flank pain 7/10, urgency, unable to void started last night hx of stones Physical Exam GENERAL: NAD, bradycardic in 30s-40s CARDIOVASCULAR: RRR RESPIRATORY: CTA ABDOMEN: BS x 4. Nontender to palpation. Initial orders for labs and / or imaging were placed and patient was placed in the waiting area until a bed is available. Please see further documentation for the full ED course.
[2023-08-13 13:21] LABS: Basophils # (auto) 0.05 K/uL (0.00-0.20); Eosinophils # (auto) 0.19 K/uL (0.00-0.50); Eosinophils % (auto) 3.7 %; Hemoglobin 14.9 g/dl (14.0-18.0); Immature Granulocytes # (auto) 0.02 K/uL (0.01-0.20); Immature Granulocytes % (auto) 0.4 %; Lymphocytes # (auto) 1.23 K/uL (1.20-3.40); Lymphocytes % (auto) 23.7 %; Mean Corpuscular Hemoglobin 32.1 pg (25.0-34.0); Mean Corpuscular Hgb Conc 34.7 g/dL (32.0-36.0); Mean Corpuscular Volume 92.7 fL (80.0-100.0); Mean Platelet Volume 11.4 fL (9.4-12.4); Monocytes # (auto) 0.42 K/uL (0.11-0.59); Monocytes % (auto) 8.1 %; Neutrophils # (auto) 3.28 K/uL (1.40-6.50); Neutrophils % (auto) 63.1 %; Platelet Count 184 K/uL (130-400); RDW Coefficient of Variation 12.7 % (11.5-14.5); RDW Standard Deviation 42.4 fL (36.4-46.3); Red Blood Count 4.64 M/uL (4.70-6.10); White Blood Count 5.19 K/ul (4.8-10.8)
[2023-08-13 13:28] LABS: Albumin Globulin Ratio 1.3 (0.9-2); BUN Creatinine Ratio 8.6 (10-20); Calcium 9.2 mg/dl (8.6-10.3); Creatinine Clr Calc Pharmacy 117.3 ml/min; Est GFR (African American) 103.1 ml/min; Est GFR (Non-African American) 88.9 ml/min; Potassium 3.6 mmol/L (3.5-5.1)
--- NOTE | 2023-08-13 13:42 | CT Scan Report ---
ABDOMEN AND PELVIS CT WITHOUT CONTRAST CT DOSE: 1507.39 mGy.cm HISTORY: RIGHT FLANK PAIN, HX OF STONES TECHNIQUE: Multiaxial CT images of the abdomen and pelvis were performed without contrast. A dose lo wering technique was utilized adhering to the principles of ALARA. COMPARISON STUDY: Abdomen and pelvis CT 12/30/2016. FINDINGS: Mild dependent changes seen at the lung bases. No pneumoperitoneum. No pneumatosis. L3-L5 p osterior decompression and fusion with pedicle screws and rods. No acute fractures identified. The un enhanced liver, gallbladder, pancreas, spleen, and left adrenal gland unremarkable. Small right adren al gland nodules remain stable and are likely benign. Moderate calcified plaque within the normal pricilla iber abdominal aorta. No retroperitoneal or pelvic lymphadenopathy. No pelvic free fluid. Suboptimal evaluation for bowel pathology due to the lack of intravenous and oral contrast. However, there is no definite bowel wall thickening or obstruction. Colonic diverticulosis. No evidence for acute diverti culitis. Normal appendix. There is a 9 mm stone within the upper pole of the left kidney. No right re nal calculi. However, there is mild right perinephric edema and right periureteral edema. There is mi ld fullness within the right renal collecting system and right ureter without mariana hydronephrosis. T here is mild bladder wall thickening with adjacent fat stranding. There is a 4 mm stone within the bl adder base. IMPRESSION: 1. There is mild fullness within the right renal collecting system and right ureter without mariana hyd ronephrosis. In conjunction with the 4 mm bladder stone, this suggests a recently passed right ureter al stone. 2. Left-sided nephrolithiasis. No hydronephrosis. 3. No bowel wall thickening or obstruction. 4. Normal appendix. 5. Mild bladder wall thickening with adjacent fat stranding. This could represent a cystitis. Recomme nd correlation with urinalysis. ACT 112: Negative or not required by law. Electronically signed by: Abdulaziz Burton M.D. 08/13/2023 1:40 PM
--- NOTE | 2023-08-13 17:11 | Emergency Department Note ---
Impression & Plan Aphasia, Abnormal CT scan of head, Ventricular bigeminy, Renal colic on right side ED Provider Note NAME: AZEB REES AGE: 62 SEX: M ARRIVES VIA: Walk-In INFORMANT: Patient ED PROVIDER(S): Vimal Sullivan MD CHIEF COMPLAINT: Right flank pain PLAN: Disposition: Admit MEDICAL DECISION MAKING: The patient is a pleasant 62-year-old gentleman with a past medical history of hypertension, hyperlipidemia, plus additional lightheadedness, vertebral artery insufficiency, PVCs in bigeminy with associated pulse deficit,, Spinal stenosis, peripheral neuropathic pain, JAYMIE who presents to the emergency department via walk-in for evaluation of acute onset right flank pain which subsequently improved when receiving Toradol and triage to be of critical pathways. He reports having urinary urgency and blood in his urine. He denies any fevers, chills, cough, congestion, GI or symptoms. Of note, the patient did arrive to emergency department during time of high volume, acuity and prolonged emergency department waiting times. Critical pathways initiated from triage. The patient's initial evaluation was completed from the emergency department waiting room. Following completion of the patient's CT imaging he was moved to the a pod for further assessment. On my evaluation the patient is well-appearing no acute distress, afebrile with heart rate in the 60s and blood pressure 160s/70s and vital signs otherwise stable. He appears clinically dry. He has no focal neurologic deficits. EKG demonstrates sinus rhythm with frequent PVCs and pattern of bigeminy without overt ST elevation or depression. WBC, H/H and platelets within normal limits. Chemistry without metabolic acidosis. Electrolytes without significant normality. Total bilirubin 2.0, similar to prior range values. And LFTs otherwise normal. UA without convincing evidence of infection as epithelial cells are present and no bacteria. Nitrites are negative. CT of the pelvis was performed and demonstrates mild fullness in the right renal collecting system and right ureter without mariana hydronephrosis with noted 4 mm bladder stone that suggest recently passed right ureteral stone. Otherwise there is a left sided nephrolithiasis without hydronephrosis. Nonspecific bladder wall thickening with adjacent fat stranding is noted however given no convincing evidence of infection on UA this is considered less likely. Of note, on my evaluation the patient incidentally reported that over the past month he has had frequent and increasing episodes of word finding difficulty when attempting to describe simple things. His daughter who is a [employer] employee in the education department further corroborates that she has also noticed this. Thus, we did agree to proceed with CT of the head and CTA of the head and neck. This performed and CT angiogram was unremarkable however CT of the head does comment on an 8 mm hypodensity in the left temporal/posterior left basal ganglia region which may reflect age-indeterminate infarct. This finding was reviewed with the patient and his daughter the bedside. Given this area would correlate with his symptoms of mild aphasia they did agree with plan for admission for further evaluation for stroke. [facility]. Triage Nursing notes reviewed and agree them. Prior/external medical records reviewed Vital Signs: reviewed Differential diagnosis: Renal colic, UTI, appendicitis, diverticulitis, mesenteric ischemia, aortic pathology, infections, inflammatory bowel disease, PUD, biliary pathology, as well as other pathologies. ER treatment provided: See below. Diagnostics interpreted by me: ECG: Sinus rhythm, 62 bpm with frequent PVCs and pattern of bigeminy, nonspecific ST and T wave abnormality, no overt ST elevation or depression, QTc 446, QRS 90. Cardiac Monitoring: An order for continuous cardiac monitoring was placed and demonstrated Sinus rhythm, 62 bpm with frequent PVCs and pattern of bigeminy Laboratory studies: See below Imaging studies: See below Consultation(s): Case was discussed with Dr. Cali, [facility] hospitalist, who will evaluate the patient for admission. HPI: The patient is a pleasant 62-year-old gentleman with a past medical history of hypertension, hyperlipidemia, plus additional lightheadedness, vertebral artery insufficiency, PVCs in bigeminy with associated pulse deficit, Spinal stenosis, peripheral neuropathic pain, JAYMIE who presents to the emergency department via walk-in for evaluation of acute onset right flank pain which subsequently improved when receiving Toradol and triage to be of critical pathways. He reports having urinary urgency and blood in his urine. He denies any fevers, chills, cough, congestion, GI or symptoms. ROS: See above HPI for pertinent positives & negatives. A total of 10 systems reviewed and were otherwise negative. VITALS:See Below PHYSICAL EXAMINATION: GENERAL: Awake, alert, well-appearing, in no distress, BMI 38.6. HENT: Normocephalic, atraumatic. Oropharynx with dry mucous membranes and otherwise unremarkable. EYES: Normal conjunctiva. Sclera non-icteric. EOMI. No nystamgus. PEARRL. NECK: Supple. No nuchal rigidity. FROM. No JVD. RESPIRATORY: Clear to auscultation. CARDIAC: Regular rate, normal rhythm. Extremities warm and well perfused. Pulses equal. ABDOMEN: Soft, non-distended. No tenderness to palpation. No rebound or guarding. No masses. RECTAL: Deferred. MUSCULOSKELETAL: Chest examination reveals no tenderness. The back is symmetrical on inspection without obvious abnormality. There is no CVA tenderness to palpation. No joint edema. LOWER EXTREMITIES: Calves are equal size bilaterally and non-tender. No edema. No discoloration. NEURO: Normal sensorium. No sensory or motor deficits noted. CNII-XII grossly intact. 5/5 strength and SILT x 4 extremities. Cerebellar function intact including [id number], alternating palms, [id number]. SKIN: No rash or jaundice noted. 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 Patel History of cervical discectomy and fusion done in 1999- [facility] History of excision of pilonidal cyst History of tooth extraction History of shoulder surgery LT - MULTIPLE History of colonoscopy (~2012) S/P tonsillectomy Family History Father No pertinent family history Mother No pertinent family history Denies family history of Ovarian cancer Prostate cancer Myocardial infarction Breast cancer Colorectal cancer Social History Smoking Status: Never smoker Age Started Using Tobacco: 13; Age Quit Using Tobacco: 47; packs per day: 2.5; Cigarettes Per Day: 50; Second Hand Exposure: No ( A CHILD); Do You Dip or Chew Tobacco: No; Hx Alcohol Use: No Hx Substance Use: No Preferred Language: Burkinan Communication Ability: Effective Visual Impairment: No Limitations Hearing Ability: Normal Violin Tutor Required: No Beliefs That Will Affect Care: None marital status: Current Living Situation: Spouse current occupational status: employed 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 Safe at Home: Yes Childhood Exposure to Second-Hand Smoke: Yes Dental Care, Regularly: No Physical Activity Frequency: Does not Exercise Assistive Devices: Cane and Glasses Allergies Allergies Allergy/AdvReac Type Severity Reaction Status Date / Time No Known Drug Allergies Allergy Verified 07/05/23 15:10 Home Meds Home Medications Medication Instructions Recorded Confirmed coenzyme Q10 100 mg capsule 100 mg PO QAM 02/15/21 07/05/23 (CoQ-10) ferrous gluconate 240 mg (27 mg 240 mg PO QAM 02/15/21 07/05/23 iron) tablet (Ferate) vitamin B complex (B 1 tab PO QAM 02/15/21 07/05/23 Complex-Vitamin B12 tablet) glucosamine-chondroitin 250 mg-200 2 tab PO QAM 03/25/21 07/05/23 mg tablet (Osteo Bi-Flex) aspirin 81 mg tablet,delayed 81 mg PO QAM 05/31/21 07/05/23 release (Adult Low Dose Aspirin) atorvastatin 20 mg tablet 20 mg PO QAM 03/03/23 07/05/23 tamsulosin 0.4 mg capsule 0.4 mg PO QAM 03/03/23 07/05/23 acetaminophen 325 mg capsule 325 mg PO QID PRN 04/05/23 07/05/23 (Tylenol) magnesium 200 mg tablet 200 mg PO DAILY 04/05/23 07/05/23 Previous Rx's Medication Instructions Recorded methocarbamol 750 mg tablet 1,500 mg (2 x 750 mg) PO TID #180 04/05/23 tabs lisinopril 10 mg tablet 10 mg PO QAM #90 tabs 05/01/23 Results & Data (ED) Vital Signs Vital Signs - 24 hr 08/13/23 12:49 08/13/23 17:41 08/13/23 17:41 Temperature 36.7 C Temperature Source Temporal Artery Scan Pulse Rate 36 L 53 L Pulse Rate [Apical] 65 Respiratory Rate 18 19 Respiratory Effort / Characteristics Non-Labored Spontaneous Non-Labored Spontaneous Respiratory Depth Normal Normal Blood Pressure 166/65 H Blood Pressure [Left Arm] 169/73 H Blood Pressure Mean 98 Blood Pressure Mean [Left Arm] 105 Blood Pressure Position Sitting Blood Pressure Position [Left Arm] Lying Pulse Oximetry 93 99 Oxygen Delivery Method Room Air Room Air Sepsis Recent Fever Within 48 Hours No Sepsis New/Unexplained Change in Mental Status No Sepsis Action Taken by Nursing No Action Required Laboratory Data Attestation: I reviewed the patient's lab results. 08/13/23 13:00 08/13/23 13:00 Lab Results 08/13/23 08/13/23 Range/Units 13:00 Unknown WBC 5.19 (4.8-10.8) K/ul RBC 4.64 L (4.70-6.10) M/uL Hgb 14.9 (14.0-18.0) g/dl Hct 43.0 (42.0-52.0) % MCV 92.7 (80.0-100.0) fL MCH 32.1 (25.0-34.0) pg MCHC 34.7 (32.0-36.0) g/dL RDW Std Deviation 42.4 (36.4-46.3) fL RDW Coeff of Porfirio 12.7 (11.5-14.5) % Plt Count 184 (130-400) K/uL MPV 11.4 (9.4-12.4) fL Immature Gran % (Auto) 0.4 % Neut % (Auto) 63.1 % Lymph % (Auto) 23.7 % Jay % (Auto) 8.1 % Eos % (Auto) 3.7 % Baso % (Auto) 1.0 % Neut # (Auto) 3.28 (1.40-6.50) K/uL Lymph # (Auto) 1.23 (1.20-3.40) K/uL Jay # (Auto) 0.42 (0.11-0.59) K/uL Eos # (Auto) 0.19 (0.00-0.50) K/uL Baso # (Auto) 0.05 (0.00-0.20) K/uL Immature Gran # (Auto) 0.02 (0.01-0.20) K/uL Sodium 141 (136-145) mmol/L Potassium 3.6 (3.5-5.1) mmol/L Chloride 107 (98-107) mmol/L Carbon Dioxide 26 (21-32) mmol/L Anion Gap 8 (3-11) BUN 8 (6-23) mg/dl Creatinine 0.93 (0.6-1.4) mg/dl Est Cr Clr Drug Dosing 117.3 ml/min Est GFR ( Amer) 103.1 ml/min Est GFR (Non-Af Amer) 88.9 ml/min BUN/Creatinine Ratio 8.6 L (10-20) Glucose 106 H (70-99(Fasting)) mg/dl Calcium 9.2 (8.6-10.3) mg/dl Total Bilirubin 2.0 H (0.2-1.0) mg/dl AST 20 (13-39) U/L ALT 21 (7-52) U/L Alkaline Phosphatase 83 (34-104) U/L Total Protein 7.0 (6.0-8.3) gm/dl Albumin 4.0 (3.4-5.0) gm/dl Globulin 3.0 (2.5-4.0) gm/dl Albumin/Globulin Ratio 1.3 (0.9-2) Urine Color Dark Yellow Urine Appearance Turbid A (Clear) Urine pH 5.0 (4.5-7.5) Ur Specific [place] 1.023 (1.000-1.030) Urine Protein 1+ H (Negative) Urine Glucose (UA) Negative (Negative) Urine Ketones Trace H (Negative) Urine Blood 3+ H (Negative) Urine Nitrite Negative (Negative) Urine Bilirubin 1+ H (Negative) Urine Urobilinogen Negative (Negative) Ur Leukocyte Esterase Trace H (Negative) Urine WBC (Auto) 5-10 H (0-5) /hpf Urine RBC (Auto) 10-30 H (0-4) /hpf U Hyaline Cast (Auto) 5-10 H (0-5) /lpf U Epithel Cells (Auto) >30 H (0-5) /lpf Urine Bacteria (Auto) Negative (Negative) Urine Crystals Not Reportable Calcium Oxalate Crystal Present A (None Prsent) Urine Mucus Present A (None Prsent) Administered Medications Discontinued Medications Sodium Chloride (Nss) 500 mls @ 999 mls/hr IV .Q31M STA Stop: 08/13/23 13:23 Last Infusion: 08/13/23 17:22 Dose: Infused Documented By: Admin: 08/13/23 14:07 Dose: 999 mls/hr Documented By: PAT Sodium Chloride (Nss) 500 mls @ 999 mls/hr IV .Q31M ONE Stop: 08/13/23 18:33 Last Admin: 08/13/23 18:59 Dose: 999 mls/hr Documented By: TERRA Ioversol (Optiray 320 125ml) 118 ml IV ONCE ONE Stop: 08/13/23 18:51 Last Admin: 08/13/23 18:50 Dose: 118 ml Documented By: NELDA Ketorolac Tromethamine (Ketorolac Tromethamine 15 Mg/Ml Vial) 15 mg IV ONE STA Stop: 08/13/23 12:54 Last Admin: 08/13/23 12:59 Dose: 15 mg Documented By: JYOTI Imaging Data Radiologist's Impression: Abdomen/Pelvis CT 08/13/23 12:[address] WITHOUT CONTRAST CT DOSE: 1507.39 mGy.cm HISTORY: RIGHT FLANK PAIN, HX OF STONES TECHNIQUE: Multiaxial CT images of the abdomen and pelvis were performed without contrast. A dose lowering technique was utilized adhering to the principles of ALARA. COMPARISON STUDY: Abdomen and pelvis CT 12/30/2016. FINDINGS: Mild dependent changes seen at the lung bases. No pneumoperitoneum. No pneumatosis. L3-L5 posterior decompression and fusion with pedicle screws and rods. No acute fractures identified. The unenhanced liver, gallbladder, pancreas, spleen, and left adrenal gland unremarkable. Small right adrenal gland nodules remain stable and are likely benign. Moderate calcified plaque within the normal caliber abdominal aorta. No retroperitoneal or pelvic lymphadenopathy. No pelvic free fluid. Suboptimal evaluation for bowel pathology due to the lack of intravenous and oral contrast. However, there is no definite bowel wall thickening or obstruction. Colonic diverticulosis. No evidence for acute diverticulitis. Normal appendix. There is a 9 mm stone within the upper pole of the left kidney. No right renal calculi. However, there is mild right perinephric edema and right periureteral edema. There is mild fullness within the right renal collecting system and right ureter without mariana hydronephrosis. There is mild bladder wall thickening with adjacent fat stranding. There is a 4 mm stone within the bladder base. IMPRESSION: 1. There is mild fullness within the right renal collecting system and right ureter without mariana hydronephrosis. In conjunction with the 4 mm bladder stone, this suggests a recently passed right ureteral stone. 2. Left-sided nephrolithiasis. No hydronephrosis. 3. No bowel wall thickening or obstruction. 4. Normal appendix. 5. Mild bladder wall thickening with adjacent fat stranding. This could represent a cystitis. Recommend correlation with urinalysis. ACT 112: Negative or not required by law. Electronically signed by: Abdulaziz Burton M.D. 08/13/2023 1:[address] 08/13/23 18:03 CT OF THE HEAD WITHOUT CONTRAST CLINICAL HISTORY: word finding difficulty COMPARISON STUDY: No previous studies for comparison. TECHNIQUE: Helical axial images of the head were obtained without IV contrast. Automated exposure control was utilized for the study. A dose lowering technique was utilized adhering to the principles of ALARA. FINDINGS: No acute intracranial hemorrhage, midline shift or mass effect is present. The ventricular system is unremarkable. The basal cisterns are patent. No extra-axial collections are present. An 8 mm hypodensity within the left temporal lobe/posterior left basal ganglia on image 11 of 32 is of questionable significance. There are no significant calvarial abnormalities. IMPRESSION: 1. No acute intracranial hemorrhage or mass effect. 2. 8 mm hypodensity within the left temporal lobe/posterior left basal ganglia. This is of questionable significance and may represent small vessel disease. However, a small age indeterminate infarct could appear similar. ACT 112: Negative or not required by law. Electronically signed by: Tomy Ellsworth M.D. 08/13/2023 7:07 PM Head CTA 08/13/23 18:03 CTA ANGIOGRAPHY OF THE HEAD CLINICAL HISTORY: word finding difficulty COMPARISON STUDY: No previous studies for comparison. TECHNIQUE: Helical axial images of the head were obtained following uneventful intravenous administration of 118 cc of Optiray. Sagittal and coronal reconstructions were viewed as well as maximal intensity projections on an independent 3-D workstation. Automated exposure control was utilized for the study. A dose lowering technique was utilized adhering to the principles of ALARA. 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 The bilateral M1, M2, A1 and A2 segments are patent. There is no large vessel occlusion. No intracranial aneurysm. Left vertebral artery is diminutive on a congenital basis and ends in PICA. The basilar artery is patent. The bilateral posterior cerebral arteries are patent. IMPRESSION: No large vessel occlusion. No intracranial aneurysm. ACT 112: Negative or not required by law. Electronically signed by: Tomy Ellsworth M.D. 08/13/2023 7:19 PM Neck CTA 08/13/23 18:03 CT ANGIOGRAPHY OF THE NECK WITH CONTRAST CLINICAL HISTORY: word finding difficulty COMPARISON STUDY: None available at time of interpretation. Technique: CT angiography of the carotid and vertebral arteries was obtained using Optiray and 3D reconstruction on an independent workstation. NASCET criteria was utilized. Automated exposure control was utilized for the study. A dose lowering technique was utilized adhering to the principles of ALARA. Findings: Visualized portions of the lung apices are unremarkable. There is no cervical lymphadenopathy. There is no cervical spine fracture. The left vertebral artery is diminutive on a congenital basis. The origin of the left vertebral artery is not well assessed on this exam. The right vertebral artery is dominant and patent. There are no stenoses within this vessel. There is no dissection or aneurysm within the neck. There is mild plaque within the bilateral carotid bifurcations without stenosis. Mixing artifact within the proximal left internal carotid artery is incidentally noted. IMPRESSION: Mild plaque within the bilateral carotid bifurcations without significant stenosis. ACT 112: Negative or not required by law. Electronically signed by: Tomy Ellsworth M.D. 08/13/2023 7:11 PM Discharge Plan Visit Data Chief Complaint: Urinary Symptoms Stated Complaint: PAIN LOWER BACK, DIFFICULTY URINATING-KIDNEY STONE ED Provider: Vimal Sullivan Discharge Problem: Aphasia, Abnormal CT scan of head, Ventricular bigeminy, Renal colic on right side Forms Stand Alone Forms: [facility] Vertical Knowledge Prescriptions Prescriptions: No Action magnesium 200 mg tablet 200 mg PO DAILY acetaminophen [Tylenol] 325 mg capsule 325 mg PO QID PRN methocarbamol 750 mg tablet 1,500 mg PO TID Qty: 180 2RF lisinopril 10 mg tablet 10 mg PO QAM Qty: 90 3RF ferrous gluconate [Ferate] 240 mg (27 mg iron) tablet 240 mg PO QAM vitamin B complex [B Complex-Vitamin B12] Tablet 1 tab PO QAM coenzyme Q10 [CoQ-10] 100 mg capsule 100 mg PO QAM glucosamine-chondroitin [Osteo Bi-Flex] 250-200 mg tablet 2 tab PO QAM Rx Instructions: give after food/meal aspirin [Adult Low Dose Aspirin] 81 mg tablet,delayed release (DR/EC) 81 mg PO QAM atorvastatin 20 mg tablet 20 mg PO QAM tamsulosin 0.4 mg capsule 0.4 mg PO QAM Referrals Referrals: Tomasa Vela MD [Primary Care Provider] -
[2023-08-13 17:49] LABS: Appearance Urine Turbid (Clear); Bacteria Urine Automated Negative (Negative); Blood Urine 3+ (Negative); Color Urine Dark Yellow; Epithelial Cell Urine Auto >30 /lpf (0-5); Glucose Urine UA Negative (Negative); Ketones Urine Trace (Negative); Leukocyte Esterase Urine Trace (Negative); Nitrite Urine Negative (Negative); Protein Urine 1+ (Negative); Specific Gravity Urine 1.023 (1.000-1.030); Urobilinogen Urine Negative (Negative)
[2023-08-13 17:50] LABS: Bilirubin Urine 1+ (Negative)
[2023-08-13 17:59] LABS: Mucus Urine Present (None Prsent)
[2023-08-13 18:00] LABS: Calcium Oxalate Crystals Urine Present (None Prsent)
[2023-08-13] MEDS ORDERED: SODIUM CHLORIDE 0.9% 500 ML IV ONE (18:03)
[2023-08-13] MEDS ORDERED: OPTIRAY 320 125ml IV ONE (18:50)
--- NOTE | 2023-08-13 19:09 | CT Scan Report ---
CT OF THE HEAD WITHOUT CONTRAST CLINICAL HISTORY: word finding difficulty COMPARISON STUDY: No previous studies for comparison. TECHNIQUE: Helical axial images of the head were obtained without IV contrast. Automated exposure con trol was utilized for the study. A dose lowering technique was utilized adhering to the principles o f ALARA. FINDINGS: No acute intracranial hemorrhage, midline shift or mass effect is present. The ventricular system is unremarkable. The basal cisterns are patent. No extra-axial collections are present. An 8 m m hypodensity within the left temporal lobe/posterior left basal ganglia on image 11 of 32 is of ques tionable significance. There are no significant calvarial abnormalities. IMPRESSION: 1. No acute intracranial hemorrhage or mass effect. 2. 8 mm hypodensity within the left temporal lobe/posterior left basal ganglia. This is of questionab le significance and may represent small vessel disease. However, a small age indeterminate infarct co uld appear similar. ACT 112: Negative or not required by law. Electronically signed by: Tomy Ellsworth M.D. 08/13/2023 7:07 PM
--- NOTE | 2023-08-13 19:13 | CT Scan Report ---
CT ANGIOGRAPHY OF THE NECK WITH CONTRAST CLINICAL HISTORY: word finding difficulty COMPARISON STUDY: None available at time of interpretation. Technique: CT angiography of the carotid and vertebral arteries was obtained using Optiray and 3D rec onstruction on an independent workstation. NASCET criteria was utilized. Automated exposure control was utilized for the study. A dose lowering technique was utilized adhering to the principles of ALA RA. Findings: Visualized portions of the lung apices are unremarkable. There is no cervical lymphadenopat hy. There is no cervical spine fracture. The left vertebral artery is diminutive on a congenital basi s. The origin of the left vertebral artery is not well assessed on this exam. The right vertebral art lucero is dominant and patent. There are no stenoses within this vessel. There is no dissection or aneur ysm within the neck. There is mild plaque within the bilateral carotid bifurcations without stenosis. Mixing artifact within the proximal left internal carotid artery is incidentally noted. IMPRESSION: Mild plaque within the bilateral carotid bifurcations without significant stenosis. ACT 112: Negative or not required by law. Electronically signed by: Tomy Ellsworth M.D. 08/13/2023 7:11 PM
--- NOTE | 2023-08-13 19:21 | CT Scan Report ---
CTA ANGIOGRAPHY OF THE HEAD CLINICAL HISTORY: word finding difficulty COMPARISON STUDY: No previous studies for comparison. TECHNIQUE: Helical axial images of the head were obtained following uneventful intravenous administr ation of 118 cc of Optiray. Sagittal and coronal reconstructions were viewed as well as maximal inten sity projections on an independent 3-D workstation. Automated exposure control was utilized for the study. A dose lowering technique was utilized adhering to the principles of ALARA. CT DOSE: 1193.68 mGy.cm FINDINGS: No acute intracranial hemorrhage was identified on the head CT which will be reviewed poren cephaly. The bilateral M1, M2, A1 and A2 segments are patent. There is no large vessel occlusion. No intracranial aneurysm. Left vertebral artery is diminutive on a congenital basis and ends in PICA. Th e basilar artery is patent. The bilateral posterior cerebral arteries are patent. IMPRESSION: No large vessel occlusion. No intracranial aneurysm. ACT 112: Negative or not required by law. Electronically signed by: Tomy Ellsworth M.D. 08/13/2023 7:19 PM
--- NOTE | 2023-08-13 22:32 | History & Physical Report ---
Date of Service August 13, 2023 Assessment & Plan (1) CVA (cerebral vascular accident): Plan: 62-year-old male with past medical history significant for hyperlipidemia, severe obstructive sleep apnea on BiPAP, thoracic aortic aneurysm without rupture, hypertension, obesity, chronic pain of left knee, paresthesias of both feet, postlaminectomy syndrome was brought in because of right flank pain since last night. Patient has history of kidney stones and usually passes them but this pain was not getting better so he came to the ER. CT abdomen pelvis showed 4 mm bladder stone suggesting recently passed right ureteral stone. And left- sided nephrolithiasis. No hydronephrosis. In the ER the patient passed the stone. And he has some blood in the urine. When he was in the bathroom he felt little dizzy. Currently resting comfortably. The flank pain is resolved. But he also having occasional word finding difficulties since last 1 month. Imaging studies in the ER showed 8 mm hypodensity within left temporal lobe/posterior left basal ganglia questionable significance and may represent small vessel disease however a small age-indeterminate infarct also appears similar. Because this lesion is in same area of his symptoms patient is getting admitted for full stroke workup. Currently denies any headache. No blurred visions . No earache. No runny nose or sore throat. No cough. No fevers. No difficulty swallowing. Patient states he always has some chest pain and shortness of breath. But states he can walk 1 mile without stopping. Difficulty climbing stairs because of his knee problems. Currently no nausea. No abdominal pain. Resting comfortably and hemodynamically stable. CVA Having occasional word finding difficulties since last 1 month CTA neckMild plaque within the bilateral carotid bifurcations without signif icant stenosis. CTA head no significant stenosis CT head. 8 mm hypodensity within the left temporal lobe/posterior left basal ganglia. This is of questionable significance and may represent small vessel disease. However, a small age indeterminate infarct could appear similar. Will do full stroke workup with MRI scan, echo, speech evaluation and PT OT evaluation Will follow lipid profile and HbA1c levels Patient already on aspirin and statin May need ZIO monitor Neuroconsult in a.m. for further recommendations Obstructive sleep apnea On BiPAP Hyperlipidemia On statin Follow lipid profile Hypertension On lisinopril Will monitor Postlaminectomy syndrome Continue home medications History of PE after back surgery in 2019 Was on anticoagulation for 3 months PVCs with bigeminy on EKG Follows with cardiology Will follow echo DVT prophylaxis SCDs Disposition Telemetry floor Full code History of Present Illness Chief Complaint: Right flank pain and occasional word finding difficulty Primary Care Provider: Tomasa Vela MD 62-year-old male with past medical history significant for hyperlipidemia, severe obstructive sleep apnea on BiPAP, thoracic aortic aneurysm without rupture, hypertension, obesity, chronic pain of left knee, paresthesias of both feet, postlaminectomy syndrome was brought in because of right flank pain since last night. Patient has history of kidney stones and usually passes them but this pain was not getting better so he came to the ER. CT abdomen pelvis showed 4 mm bladder stone suggesting recently passed right ureteral stone. And left- sided nephrolithiasis. No hydronephrosis. In the ER the patient passed the stone. And he has some blood in the urine. When he was in the bathroom he felt little dizzy. Currently resting comfortably. The flank pain is resolved. But he also having occasional word finding difficulties since last 1 month. Imaging studies in the ER showed 8 mm hypodensity within left temporal lobe/posterior left basal ganglia questionable significance and may represent small vessel disease however a small age-indeterminate infarct also appears similar. Because this lesion is in same area of his symptoms patient is getting admitted for full stroke workup. Currently denies any headache. No blurred visions . No earache. No runny nose or sore throat. No cough. No fevers. No difficulty swallowing. Patient states he always has some chest pain and shortness of breath. But states he can walk 1 mile without stopping. Difficulty climbing stairs because of his knee problems. Currently no nausea. No abdominal pain. Resting comfortably and hemodynamically stable. Past medical history. As mentioned above Past surgical history. Colonoscopy. Cystoscopy. Neck surgery. Tonsillectomy. Removal of thyroid cyst. Multiple procedures on left shoulder. Social history. . Quit smoking in 2006. Smoked 1.5 packs a day for 36 years. No alcohol use. No drug use. Family history. Brother has JAYMIE. Allergies Allergy/AdvReac Type Severity Reaction Status Date / Time No Known Drug Allergies Allergy 0 Verified 08/13/23 21:12 Home Medications Medication Instructions Recorded Confirmed Type coenzyme Q10 100 mg capsule 100 mg PO QAM 02/15/21 08/13/23 History (CoQ-10) vitamin B complex (B 1 tab PO QAM 02/15/21 08/13/23 History Complex-Vitamin B12 tablet) glucosamine-chondroitin 250 mg-200 2 tab PO QAM 03/25/21 08/13/23 History mg tablet (Osteo Bi-Flex) aspirin 81 mg tablet,delayed 81 mg PO QAM 05/31/21 08/13/23 History release (Adult Low Dose Aspirin) atorvastatin 20 mg tablet 20 mg PO QAM 03/03/23 08/13/23 History magnesium 200 mg tablet 200 mg PO DAILY 04/05/23 08/13/23 History lisinopril 10 mg tablet 10 mg PO QAM #90 tabs 05/01/23 08/13/23 Rx acetaminophen 500 mg tablet 1,000 mg PO Q6H PRN Pain 08/13/23 08/13/23 History (Tylenol Extra Strength) ferrous sulfate 325 mg (65 mg 325 mg PO DAILY 08/13/23 08/13/23 History iron) tablet (iron) methocarbamol 750 mg tablet 1,500 mg PO TID PRN Muscle Spasm 08/13/23 08/13/23 History Past Med/Surg History Medical History Intervertebral disc disorders with radiculopathy, thoracolumbar region Lumbar spondylosis Lumbosacral spondylosis Spinal stenosis of lumbar region with neurogenic claudication Paraspinal muscle spasm Carotid artery disease doppler 02/2023 [place] PVC (premature ventricular contraction) History of pulmonary embolism post op 2019 HLD (hyperlipidemia) HTN (hypertension) Sleep apnea BiPAP Hyperlipidemia Peripheral neuropathic pain Lumbar post-laminectomy syndrome Spinal stenosis History of kidney stones Dystonia restless legs vs. dystonia, bilateral foot pain-patient has unusual movements in his feet related to pain in a peripheral neuropathy pattern however EMG is negative/neurology monitoring Surgical History History of lumbar fusion 2018 Dr. Patel History of cervical discectomy and fusion done in 1999- [facility] History of excision of pilonidal cyst History of tooth extraction History of shoulder surgery LT - MULTIPLE History of colonoscopy (~2012) S/P tonsillectomy Family History Father No pertinent family history Mother No pertinent family history Denies family history of Ovarian cancer Prostate cancer Myocardial infarction Breast cancer Colorectal cancer Social History Smoking Status: Never smoker Age Started Using Tobacco: 13; Age Quit Using Tobacco: 47; packs per day: 2.5; Cigarettes Per Day: 50; Second Hand Exposure: No ( A CHILD); Do You Dip or Chew Tobacco: No; Hx Alcohol Use: No Hx Substance Use: No Preferred Language: Frisian Communication Ability: Effective Visual Impairment: No Limitations Hearing Ability: Normal Real Estate Professional Required: No Beliefs That Will Affect Care: None marital status: Current Living Situation: Spouse current occupational status: employed 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 ENT- oropharynx clear Neck- supple, no JVD.no carotid bruit Lungs- clear to auscultation no wheezing or crackles. Heart- regular rhythm; no murmur, no gallop. Abdomen- normal bowel sounds, soft, nontender, no distension. Extremities- no pretibial edema, no erythema seen. Neuro- alert, oriented x 3; PERRL, EOMI; no facial palsy; no dysarthria; motor 5/5 bilaterally; no pronator drift, co ordination of movements normal, sensations intact, position sense intact Skin- warm & dry Results & Data Results & Data Vital Signs (Past 12 Hours) Vital Signs Temp Pulse Pulse Resp BP BP Pulse Ox 08/13/23 21:39 74 08/13/23 19:00 54 L 18 137/68 97 08/13/23 17:41 53 L 08/13/23 17:41 65 19 169/73 H 99 08/13/23 12:49 36.7 C 36 L 18 166/65 H 93 O2 Del Method 08/13/23 21:39 08/13/23 19:00 Room Air 08/13/23 17:41 08/13/23 17:41 Room Air 08/13/23 12:49 Room Air Diagnostic Findings Laboratory Results WBC 5.19 K/ul (4.8-10.8) 08/13/23 13:00 RBC 4.64 M/uL (4.70-6.10) L 08/13/23 13:00 Hgb 14.9 g/dl (14.0-18.0) 08/13/23 13:00 Hct 43.0 % (42.0-52.0) 08/13/23 13:00 MCV 92.7 fL (80.0-100.0) 08/13/23 13:00 MCH 32.1 pg (25.0-34.0) 08/13/23 13:00 MCHC 34.7 g/dL (32.0-36.0) 08/13/23 13:00 RDW Std Deviation 42.4 fL (36.4-46.3) 08/13/23 13:00 RDW Coeff of Porfirio 12.7 % (11.5-14.5) 08/13/23 13:00 Plt Count 184 K/uL (130-400) 08/13/23 13:00 MPV 11.4 fL (9.4-12.4) 08/13/23 13:00 Immature Gran % (Auto) 0.4 % 08/13/23 13:00 Neut % (Auto) 63.1 % 08/13/23 13:00 Lymph % (Auto) 23.7 % 08/13/23 13:00 Johnston % (Auto) 8.1 % 08/13/23 13:00 Eos % (Auto) 3.7 % 08/13/23 13:00 Baso % (Auto) 1.0 % 08/13/23 13:00 Neut # (Auto) 3.28 K/uL (1.40-6.50) 08/13/23 13:00 Lymph # (Auto) 1.23 K/uL (1.20-3.40) 08/13/23 13:00 Johnston # (Auto) 0.42 K/uL (0.11-0.59) 08/13/23 13:00 Eos # (Auto) 0.19 K/uL (0.00-0.50) 08/13/23 13:00 Baso # (Auto) 0.05 K/uL (0.00-0.20) 08/13/23 13:00 Immature Gran # (Auto) 0.02 K/uL (0.01-0.20) 08/13/23 13:00 Sodium 141 mmol/L (136-145) 08/13/23 13:00 Potassium 3.6 mmol/L (3.5-5.1) 08/13/23 13:00 Chloride 107 mmol/L (98-107) 08/13/23 13:00 Carbon Dioxide 26 mmol/L (21-32) 08/13/23 13:00 Anion Gap 8 (3-11) 08/13/23 13:00 BUN 8 mg/dl (6-23) 08/13/23 13:00 Creatinine 0.93 mg/dl (0.6-1.4) 08/13/23 13:00 Est Cr Clr Drug Dosing 117.3 ml/min 08/13/23 13:00 Est GFR ( Amer) 103.1 ml/min 08/13/23 13:00 Est GFR (Non-Af Amer) 88.9 ml/min 08/13/23 13:00 BUN/Creatinine Ratio 8.6 (10-20) L 08/13/23 13:00 Glucose 106 mg/dl (70-99(Fasting)) H 08/13/23 13:00 Calcium 9.2 mg/dl (8.6-10.3) 08/13/23 13:00 Total Bilirubin 2.0 mg/dl (0.2-1.0) H 08/13/23 13:00 AST 20 U/L (13-39) 08/13/23 13:00 ALT 21 U/L (7-52) 08/13/23 13:00 Alkaline Phosphatase 83 U/L (34-104) 08/13/23 13:00 Total Protein 7.0 gm/dl (6.0-8.3) 08/13/23 13:00 Albumin 4.0 gm/dl (3.4-5.0) 08/13/23 13:00 Globulin 3.0 gm/dl (2.5-4.0) 08/13/23 13:00 Albumin/Globulin Ratio 1.3 (0.9-2) 08/13/23 13:00 Urine Color Dark Yellow 08/13/23 Unknown Urine Appearance Turbid (Clear) A 08/13/23 Unknown Urine pH 5.0 (4.5-7.5) 08/13/23 Unknown Ur Specific Ackerly 1.023 (1.000-1.030) 08/13/23 Unknown Urine Protein 1+ (Negative) H 08/13/23 Unknown Urine Glucose (UA) Negative (Negative) 08/13/23 Unknown Urine Ketones Trace (Negative) H 08/13/23 Unknown Urine Blood 3+ (Negative) H 08/13/23 Unknown Urine Nitrite Negative (Negative) 08/13/23 Unknown Urine Bilirubin 1+ (Negative) H 08/13/23 Unknown Urine Urobilinogen Negative (Negative) 08/13/23 Unknown Ur Leukocyte Esterase Trace (Negative) H 08/13/23 Unknown Urine WBC (Auto) 5-10 /hpf (0-5) H 08/13/23 Unknown Urine RBC (Auto) 10-30 /hpf (0-4) H 08/13/23 Unknown U Hyaline Cast (Auto) 5-10 /lpf (0-5) H 08/13/23 Unknown U Epithel Cells (Auto) >30 /lpf (0-5) H 08/13/23 Unknown Urine Bacteria (Auto) Negative (Negative) 08/13/23 Unknown Urine Crystals Not Reportable 08/13/23 Unknown Calcium Oxalate Crystal Present (None Prsent) A 08/13/23 Unknown Urine Mucus Present (None Prsent) A 08/13/23 Unknown Impressions Abdomen/Pelvis CT 08/13/23 12:[address] WITHOUT CONTRAST CT DOSE: 1507.39 mGy.cm HISTORY: RIGHT FLANK PAIN, HX OF STONES TECHNIQUE: Multiaxial CT images of the abdomen and pelvis were performed without contrast. A dose lowering technique was utilized adhering to the principles of ALARA. COMPARISON STUDY: Abdomen and pelvis CT 12/30/2016. FINDINGS: Mild dependent changes seen at the lung bases. No pneumoperitoneum. No pneumatosis. L3-L5 posterior decompression and fusion with pedicle screws and rods. No acute fractures identified. The unenhanced liver, gallbladder, pancreas, spleen, and left adrenal gland unremarkable. Small right adrenal gland nodules remain stable and are likely benign. Moderate calcified plaque within the normal caliber abdominal aorta. No retroperitoneal or pelvic lymphadenopathy. No pelvic free fluid. Suboptimal evaluation for bowel pathology due to the lack of intravenous and oral contrast. However, there is no definite bowel wall thickening or obstruction. Colonic diverticulosis. No evidence for acute diverticulitis. Normal appendix. There is a 9 mm stone within the upper pole of the left kidney. No right renal calculi. However, there is mild right perinephric edema and right periureteral edema. There is mild fullness within the right renal collecting system and right ureter without mariana hydronephrosis. There is mild bladder wall thickening with adjacent fat stranding. There is a 4 mm stone within the bladder base. IMPRESSION: 1. There is mild fullness within the right renal collecting system and right ureter without mariana hydronephrosis. In conjunction with the 4 mm bladder stone, this suggests a recently passed right ureteral stone. 2. Left-sided nephrolithiasis. No hydronephrosis. 3. No bowel wall thickening or obstruction. 4. Normal appendix. 5. Mild bladder wall thickening with adjacent fat stranding. This could repr esent a cystitis. Recommend correlation with urinalysis. ACT 112: Negative or not required by law. Electronically signed by: Abdulaziz Burton M.D. 08/13/2023 1:[address] 08/13/23 18:03 CT OF THE HEAD WITHOUT CONTRAST CLINICAL HISTORY: word finding difficulty COMPARISON STUDY: No previous studies for comparison. TECHNIQUE: Helical axial images of the head were obtained without IV contrast. Automated exposure control was utilized for the study. A dose lowering technique was utilized adhering to the principles of ALARA. FINDINGS: No acute intracranial hemorrhage, midline shift or mass effect is present. The ventricular system is unremarkable. The basal cisterns are patent. No extra-axial collections are present. An 8 mm hypodensity within the left temporal lobe/posterior left basal ganglia on image 11 of 32 is of questionable significance. There are no significant calvarial abnormalities. IMPRESSION: 1. No acute intracranial hemorrhage or mass effect. 2. 8 mm hypodensity within the left temporal lobe/posterior left basal ganglia. This is of questionable significance and may represent small vessel disease. However, a small age indeterminate infarct could appear similar. ACT 112: Negative or not required by law. Electronically signed by: Tomy Ellsworth M.D. 08/13/2023 7:07 PM Head CTA 08/13/23 18:03 CTA ANGIOGRAPHY OF THE HEAD CLINICAL HISTORY: word finding difficulty COMPARISON STUDY: No previous studies for comparison. TECHNIQUE: Helical axial images of the head were obtained following uneventful intravenous administration of 118 cc of Optiray. Sagittal and coronal reconstructions were viewed as well as maximal intensity projections on an independent 3-D workstation. Automated exposure control was utilized for the study. A dose lowering technique was utilized adhering to the principles of ALARA. 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 The bilateral M1, M2, A1 and A2 segments are patent. There is no large vessel occlusion. No intracranial aneurysm. Left vertebral artery is diminutive on a congenital basis and ends in PICA. The basilar artery is patent. The bilateral posterior cerebral arteries are patent. IMPRESSION: No large vessel occlusion. No intracranial aneurysm. ACT 112: Negative or not required by law. Electronically signed by: Tomy Ellsworth M.D. 08/13/2023 7:19 PM Neck CTA 08/13/23 18:03 CT ANGIOGRAPHY OF THE NECK WITH CONTRAST CLINICAL HISTORY: word finding difficulty COMPARISON STUDY: None available at time of interpretation. Technique: CT angiography of the carotid and vertebral arteries was obtained using Optiray and 3D reconstruction on an independent workstation. NASCET criteria was utilized. Automated exposure control was utilized for the study. A dose lowering technique was utilized adhering to the principles of ALARA. Findings: Visualized portions of the lung apices are unremarkable. There is no cervical lymphadenopathy. There is no cervical spine fracture. The left vertebral artery is diminutive on a congenital basis. The origin of the left vertebral artery is not well assessed on this exam. The right vertebral artery is dominant and patent. There are no stenoses within this vessel. There is no dissection or aneurysm within the neck. There is mild plaque within the bilateral carotid bifurcations without stenosis. Mixing artifact within the proximal left internal carotid artery is incidentally noted. IMPRESSION: Mild plaque within the bilateral carotid bifurcations without significant stenosis. ACT 112: Negative or not required by law. Electronically signed by: Tomy Ellsworth M.D. 08/13/2023 7:11 PM ECG Additional Comments: ECG. Sinus rhythm with with frequent PVCs in a pattern of bigeminy rate of 62. Nonspecific ST-T wave abnormalities. Code Status & VTE Plan VTE Prophylaxis Plan VTE Prophylaxis will be ordered: Yes
[2023-08-13] MEDS ORDERED: SODIUM CHLORIDE 0.9% 1,000 ML IV SCH (23:01)
[2023-08-13] MEDS ORDERED: METHOCARBAMOL 750 MG TABLET PO PRN (23:01)
[2023-08-13] MEDS ORDERED: ACETAMINOPHEN 325 MG TAB PO PRN (23:01)
[2023-08-13] MEDS ORDERED: PHARMACIST DISCHARGE MED REC CONSULT PRN (23:01)
[2023-08-13] MEDS ORDERED: NITROGLYCERIN SL 0.4 MG/TAB TAB SL PRN (23:01)
[2023-08-13] MEDS ORDERED: POLYETHYLENE (MIRALAX) 17 GM PACK PO PRN (23:01)
[2023-08-13] MEDS ORDERED: ALPRAZolam 0.5 MG TABLET PO STA (23:38)
[2023-08-14] MEDS ORDERED: GADOBUTROL 30ML VIAL IV ONE (01:10)
[2023-08-14] MEDS ORDERED: INFLUENZA VIRUS QUADRIVALENT VACCINE (IIV4) 0.5 ML SYR IM ONE (01:31)
--- NOTE | 2023-08-14 02:34 | Magnetic Resonance Report ---
Exam(s): MRI HEAD W/WO Contrast IV Amt: 12cc gadavist EXAM: MR Head Without and With Intravenous Contrast CLINICAL HISTORY: cva. TECHNIQUE: Magnetic resonance images of the head/brain without and with intravenous contrast in multiple planes. CONTRAST: 12cc Gadavist of IV contrast COMPARISON: CT brain 08/13/2023. FINDINGS: Brain: No acute stroke. Prominent perivascular space inferior left basal ganglia. No mass lesion. Curvilinear enhancement in the posterior inferior right frontal lobe, likely a developmental venous anomaly. No abnormal parenchymal or leptomeningeal enhancement postcontrast. No acute hemorrhage or abnormal extra-axial fluid collection. Ventricles: No midline shift. No ventriculomegaly. Bones/joints: Unremarkable. No acute fracture. Sinuses: Unremarkable as visualized. No acute sinusitis. Mastoid air cells: Unremarkable as visualized. No mastoid effusion. Orbits: Unremarkable as visualized. IMPRESSION: No acute stroke or hemorrhage. Perivascular space in the inferior left basal ganglia. Probably incidental developmental venous anomaly in the inferior right frontal lobe. Electronically signed by: Berlin Dunne M.D. 08/14/23 02:33 AM
[2023-08-14] MEDS ORDERED: Nursing to Pharmacy Communication SCH (04:45)
[2023-08-14 05:09] LABS: Basophils # (auto) 0.02 K/uL (0.00-0.20); Basophils % (auto) 0.4 %; Eosinophils # (auto) 0.17 K/uL (0.00-0.50); Eosinophils % (auto) 3.2 %; Hematocrit (blood only) 38.3 % (42.0-52.0); Immature Granulocytes # (auto) 0.02 K/uL (0.01-0.20); Immature Granulocytes % (auto) 0.4 %; Lymphocytes # (auto) 1.48 K/uL (1.20-3.40); Lymphocytes % (auto) 27.5 %; Mean Corpuscular Hemoglobin 31.8 pg (25.0-34.0); Mean Corpuscular Hgb Conc 33.9 g/dL (32.0-36.0); Mean Corpuscular Volume 93.6 fL (80.0-100.0); Mean Platelet Volume 11.5 fL (9.4-12.4); Monocytes % (auto) 7.4 %; Neutrophils # (auto) 3.29 K/uL (1.40-6.50); Neutrophils % (auto) 61.1 %; Platelet Count 155 K/uL (130-400); RDW Coefficient of Variation 12.9 % (11.5-14.5); RDW Standard Deviation 43.9 fL (36.4-46.3); Red Blood Count 4.09 M/uL (4.70-6.10); White Blood Count 5.38 K/ul (4.8-10.8)
[2023-08-14 05:24] LABS: Calcium 8.9 mg/dl (8.6-10.3); Chol HDL Ratio 3.1 (0-5); Creatinine Clr Calc Pharmacy 141.7 ml/min; Est GFR (African American) 114.3 ml/min; Est GFR (Non-African American) 98.6 ml/min; Magnesium 1.8 mg/dl (1.7-2.4); Potassium 3.6 mmol/L (3.5-5.1)
[2023-08-14 07:52] LABS: Estimated Average Glucose 111 mg/dl; Hemoglobin A1C 5.5 % (4.5-5.6)
--- NOTE | 2023-08-14 08:36 | Electrocardiogram Report ---
Test Reason : Blood Pressure : / mmHG Vent. Rate : 062 BPM Atrial Rate : 062 BPM P-R Int : 150 ms QRS Dur : 090 ms QT Int : 440 ms P-R-T Axes : 048 016 028 degrees QTc Int : 446 ms Poor data quality, interpretation may be adversely affected Sinus rhythm with frequent Premature ventricular complexes in a pattern of bigeminy Incomplete right bundle branch block Abnormal ECG When compared with ECG of 07-JAN-2021 11:48, Premature ventricular complexes are now Present Confirmed by Bang Prater ([id number]) on 08/14/2023 8:36:28 AM Referred By: REFERRED SELF Confirmed By:Bang Prater
[2023-08-14] MEDS ORDERED: NON-FORMULARY MEDICATION (Glucosamine-Chondroitin [Osteo Bi-Flex] 250-200 mg tablet) PO SCH (09:00)
[2023-08-14] MEDS ORDERED: FERROUS SULFATE 325 MG TAB PO SCH (09:00)
[2023-08-14] MEDS ORDERED: MAGNESIUM OXIDE 400 MG TAB PO SCH (09:00)
[2023-08-14] MEDS ORDERED: NON-FORMULARY MEDICATION (Coenzyme Q10 [Coq-10] 100 mg capsule) PO SCH (09:00)
[2023-08-14] MEDS ORDERED: ATORVASTATIN 20 MG TAB PO SCH (09:00)
[2023-08-14] MEDS ORDERED: lisinopril 10 MG TAB PO SCH (09:00)
[2023-08-14] MEDS ORDERED: VITAMIN B COMPLEX TAB PO SCH (09:00)
[2023-08-14] MEDS ORDERED: ASPIRIN 81 MG ECTAB PO SCH (09:00)
[2023-08-14] MEDS ORDERED: cefTRIAXone SODIUM 1,000 MG in DEXTROSE 5 % MINI-B 50 ML IV SCH (09:15)
[2023-08-14] MEDS ORDERED: cefTRIAXone SODIUM 2,000 MG in DEXTROSE 5 % MINI-B 50 ML IV SCH (09:30)
--- NOTE | 2023-08-14 09:47 | XCELERA ---
[id number] \\[id number]
--- NOTE | 2023-08-14 11:31 | Neurology Consultation ---
Date of Consultation August 14, 2023 Assessment & Plan (1) Pre-syncope: Transient lightheadedness in a 62M with a PMH of JAYMIE, HTN, HLD. His exam is currently normal. CT showed a subcortical hypodensity in the left MCA territor and MRI was negative for any acute ischemia. Per the patients history i have a low suspicion that this event was stroke or TIA, and that subcortical hypodensity isn't in a location that would produce aphasia. Plan -- continue ASA and atorvastatin -- no further neurologic work up -- ok to d/c from my perspective Telehealth Consultation Telehealth Information Telehealth Information: I performed this visit using a real-time telehealth connection between my location and the patients location ([facility]). After connecting through interactive tele-video, patient was identified by name and date of and/or wristband check.Patient (or authorized healthcare sales representative consultant) was informed that this was a telemedicine visit and it was being conducted confidentially over secure lines. My office door was closed and no one else was present in the room with me.Patient (or authorized healthcare sales representative consultant) provided consent to proceed with the visit, expressed an understanding of privacy and security of the telemedicine visit, and gave permission to have a hospital sales representative consultant in the room in order to assist with the visit and to conduct portions of the visit, as needed. I informed the patient (or authorized healthcare sales representative consultant) that I reviewed their record and presented the opportunity for them to ask any questions regarding the visit today. The patient agreed to participate. History of Present Illness Reason for Consultation: Abnormal CT Requesting Physician: Dr Gimenez Attending Physician: Hunter Gimenez MD History of Present Illness Patient reports that he was in the ED for a Kidney stone and got a shot of toradol. This significantly helped his pain and 4-5 hours later he went to get up and felt lightheaded for a few seconds requiring him to sit back down. He denies any room spinning, or sense of motion. He hadn't eaten all day and believes that this is the cause of his lightheadedness. At that time a CT head was performed which showed an age indeterminant hypodensity and he was admitted for work up. Currently he denies any symptoms and is moving around fine. He denies headache, weakness, numbness, slurred speech, vision changes, vertigo. Allergies Allergy/AdvReac Type Severity Reaction Status Date / Time No Known Drug Allergies Allergy 0 Verified 08/13/23 21:12 Home Medications Medication Instructions Recorded Confirmed Type coenzyme Q10 100 mg capsule 100 mg PO QAM 02/15/21 08/13/23 History (CoQ-10) vitamin B complex (B 1 tab PO QAM 02/15/21 08/13/23 History Complex-Vitamin B12 tablet) glucosamine-chondroitin 250 mg-200 2 tab PO QAM 03/25/21 08/13/23 History mg tablet (Osteo Bi-Flex) aspirin 81 mg tablet,delayed 81 mg PO QAM 05/31/21 08/13/23 History release (Adult Low Dose Aspirin) atorvastatin 20 mg tablet 20 mg PO QAM 03/03/23 08/13/23 History magnesium 200 mg tablet 200 mg PO DAILY 04/05/23 08/13/23 History lisinopril 10 mg tablet 10 mg PO QAM #90 tabs 05/01/23 08/13/23 Rx acetaminophen 500 mg tablet 1,000 mg PO Q6H PRN Pain 08/13/23 08/13/23 History (Tylenol Extra Strength) ferrous sulfate 325 mg (65 mg 325 mg PO DAILY 08/13/23 08/13/23 History iron) tablet (iron) methocarbamol 750 mg tablet 1,500 mg PO TID PRN Muscle Spasm 08/13/23 08/13/23 History Patient History Medical History Intervertebral disc disorders with radiculopathy, thoracolumbar region Lumbar spondylosis Lumbosacral spondylosis Spinal stenosis of lumbar region with neurogenic claudication Paraspinal muscle spasm Carotid artery disease doppler 02/2023 [place] PVC (premature ventricular contraction) History of pulmonary embolism post op 2019 HLD (hyperlipidemia) HTN (hypertension) Sleep apnea BiPAP Hyperlipidemia Peripheral neuropathic pain Lumbar post-laminectomy syndrome Spinal stenosis History of kidney stones Dystonia restless legs vs. dystonia, bilateral foot pain-patient has unusual movements in his feet related to pain in a peripheral neuropathy pattern however EMG is negative/neurology monitoring Surgical History History of lumbar fusion 2018 Dr. Patel History of cervical discectomy and fusion done in 1999- [facility] History of excision of pilonidal cyst History of tooth extraction History of shoulder surgery LT - MULTIPLE History of colonoscopy (~2012) S/P tonsillectomy Family History Father No pertinent family history Mother No pertinent family history Denies family history of Ovarian cancer Prostate cancer Myocardial infarction Breast cancer Colorectal cancer Social History Smoking Status: Never smoker Age Started Using Tobacco: 13; Age Quit Using Tobacco: 47; packs per day: 2.5; Cigarettes Per Day: 50; Second Hand Exposure: No ( A CHILD); Do You Dip or Chew Tobacco: No; Hx Alcohol Use: No Hx Substance Use: No Preferred Language: Filipino Communication Ability: Effective Visual Impairment: No Limitations Hearing Ability: Normal Drug And Alcohol Counselor Required: No Beliefs That Will Affect Care: None marital status: Current Living Situation: Spouse current occupational status: employed 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 Safe at Home: Yes Childhood Exposure to Second-Hand Smoke: Yes Dental Care, Regularly: No Physical Activity Frequency: Does not Exercise Assistive Devices: Cane and Glasses Review of Systems See HPI Physical Exam Exam: Constitutional: Appearance normally developed Head and face: normocephalic and atraumatic Eyes: no ptosis, no anisocoria, and no dysconjugate gaze Respiratory: normal effort Cardiovascular: regular rhythm and regular rate Abdomen: non distended Skin: no rashes, lesions, or ulcers noted Psychiatric: normal judgement and insight, normal mood, and normal affect NEUROLOGIC EXAMINATION: Mental Status:alert, oriented to time, place, person, normal recent memory, normal remote memory, normal attention span, normal concentration, normal language, and normal fund of knowledge Cranial Nerves: CN 2 - no visual defect on confrontation and pupils round, equal, reactive to light CN 3, 4, 6 - extra-ocular movements intact and no nystagmus CN 5 - facial sensation intact CN 7 - no facial asymmetry CN 8 - intact hearing CN 9, 10 - palate symmetric, normal gag CN 11 - good shoulder shrug CN 12 - tongue midline MOTOR: Strength was at least antigravity throughout, Pronator drift was absent, and There were no abnormal movements SENSATION: intact and symmetric to pinprick, light touch, vibration and joint position GAIT: stable, no ataxia, and can perform tandem walking COORDINATION: no ataxia with finger to nose testing and heel to nice testing REFLEXES: cannot assess over telemedicine Results & Data Vital Signs (Past 12 Hours) Vital Signs Pulse Pulse Resp BP Pulse Ox O2 Del Method 08/14/23 08:08 63 08/14/23 00:00 67 19 125/66 96 Room Air 08/13/23 23:53 49 L Laboratory Results Abnormal Lab Results 08/13/23 08/13/23 08/14/23 13:00 Unknown 04:39 WBC 5.19 5.38 RBC 4.64 L 4.09 L Hgb 14.9 13.0 L Hct 43.0 38.3 L MCV 92.7 93.6 MCH 32.1 31.8 MCHC 34.7 33.9 RDW Std Deviation 42.4 43.9 RDW Coeff of Porfirio 12.7 12.9 Plt Count 184 155 MPV 11.4 11.5 Immature Gran % (Auto) 0.4 0.4 Neut % (Auto) 63.1 61.1 Lymph % (Auto) 23.7 27.5 [place] % (Auto) 8.1 7.4 Eos % (Auto) 3.7 3.2 Baso % (Auto) 1.0 0.4 Neut # (Auto) 3.28 3.29 Lymph # (Auto) 1.23 1.48 [place] # (Auto) 0.42 0.40 Eos # (Auto) 0.19 0.17 Baso # (Auto) 0.05 0.02 Immature Gran # (Auto) 0.02 0.02 Sodium 141 141 Potassium 3.6 3.6 Chloride 107 108 H Carbon Dioxide 26 26 Anion Gap 8 7 BUN 8 10 Creatinine 0.93 0.77 Est Cr Clr Drug Dosing 117.3 141.7 Est GFR ( Amer) 103.1 114.3 Est GFR (Non-Af Amer) 88.9 98.6 BUN/Creatinine Ratio 8.6 L 13.0 Glucose 106 H 139 H Estimat Average Glucose 111 Hemoglobin A1c 5.5 Calcium 9.2 8.9 Magnesium 1.8 Total Bilirubin 2.0 H AST 20 ALT 21 Alkaline Phosphatase 83 Total Protein 7.0 Albumin 4.0 Globulin 3.0 Albumin/Globulin Ratio 1.3 Triglycerides 83 Cholesterol 105 LDL Cholesterol, Calc 54 VLDL Cholesterol, Calc 17 HDL Cholesterol 34 Cholesterol/HDL Ratio 3.1 Urine Color Dark Yellow Urine Appearance Turbid A Urine pH 5.0 Ur Specific [place] 1.023 Urine Protein 1+ H Urine Glucose (UA) Negative Urine Ketones Trace H Urine Blood 3+ H Urine Nitrite Negative Urine Bilirubin 1+ H Urine Urobilinogen Negative Ur Leukocyte Esterase Trace H Urine WBC (Auto) 5-10 H Urine RBC (Auto) 10-30 H U Hyaline Cast (Auto) 5-10 H U Epithel Cells (Auto) >30 H Urine Bacteria (Auto) Negative Urine Crystals Not Reportable Calcium Oxalate Crystal Present A Urine Mucus Present A Diagnostic Findings Abdomen/Pelvis CT 08/13/23 12:[address] WITHOUT CONTRAST CT DOSE: 1507.39 mGy.cm HISTORY: RIGHT FLANK PAIN, HX OF STONES TECHNIQUE: Multiaxial CT images of the abdomen and pelvis were performed without contrast. A dose lowering technique was utilized adhering to the principles of ALARA. COMPARISON STUDY: Abdomen and pelvis CT 12/30/2016. FINDINGS: Mild dependent changes seen at the lung bases. No pneumoperitoneum. No pneumatosis. L3-L5 posterior decompression and fusion with pedicle screws and rods. No acute fractures identified. The unenhanced liver, gallbladder, pancreas, spleen, and left adrenal gland unremarkable. Small right adrenal gland nodules remain stable and are likely benign. Moderate calcified plaque within the normal caliber abdominal aorta. No retroperitoneal or pelvic lymphadenopathy . No pelvic free fluid. Suboptimal evaluation for bowel pathology due to the lack of intravenous and oral contrast. However, there is no definite bowel wall thickening or obstruction. Colonic diverticulosis. No evidence for acute diverticulitis. Normal appendix. There is a 9 mm stone within the upper pole of the left kidney. No right renal calculi. However, there is mild right perinephric edema and right periureteral edema. There is mild fullness within the right renal collecting system and right ureter without mariana hydronephrosis. There is mild bladder wall thickening with adjacent fat stranding. There is a 4 mm stone within the bladder base. IMPRESSION: 1. There is mild fullness within the right renal collecting system and right ureter without mariana hydronephrosis. In conjunction with the 4 mm bladder stone, this suggests a recently passed right ureteral stone. 2. Left-sided nephrolithiasis. No hydronephrosis. 3. No bowel wall thickening or obstruction. 4. Normal appendix. 5. Mild bladder wall thickening with adjacent fat stranding. This could represent a cystitis. Recommend correlation with urinalysis. ACT 112: Negative or not required by law. Electronically signed by: Abdulaziz Burton M.D. 08/13/2023 1:[address] 08/13/23 18:03 CT OF THE HEAD WITHOUT CONTRAST CLINICAL HISTORY: word finding difficulty COMPARISON STUDY: No previous studies for comparison. TECHNIQUE: Helical axial images of the head were obtained without IV contrast. Automated exposure control was utilized for the study. A dose lowering technique was utilized adhering to the principles of ALARA. FINDINGS: No acute intracranial hemorrhage, midline shift or mass effect is present. The ventricular system is unremarkable. The basal cisterns are patent. No extra-axial collections are present. An 8 mm hypodensity within the left temporal lobe/posterior left basal ganglia on image 11 of 32 is of questionable significance. There are no significant calvarial abnormalities. IMPRESSION: 1. No acute intracranial hemorrhage or mass effect. 2. 8 mm hypodensity within the left temporal lobe/posterior left basal ganglia. This is of questionable significance and may represent small vessel disease. However, a small age indeterminate infarct could appear similar. ACT 112: Negative or not required by law. Electronically signed by: Tomy Ellsworth M.D. 08/13/2023 7:07 PM Head CTA 08/13/23 18:03 CTA ANGIOGRAPHY OF THE HEAD CLINICAL HISTORY: word finding difficulty COMPARISON STUDY: No previous studies for comparison. TECHNIQUE: Helical axial images of the head were obtained following uneventful intravenous administration of 118 cc of Optiray. Sagittal and coronal reconstructions were viewed as well as maximal intensity projections on an independent 3-D workstation. Automated exposure control was utilized for the study. A dose lowering technique was utilized adhering to the principles of ALARA. 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 The bilateral M1, M2, A1 and A2 segments are patent. There is no large vessel occlusion. No intracranial aneurysm. Left vertebral artery is diminutive on a congenital basis and ends in PICA. The basilar artery is patent. The bilateral posterior cerebral arteries are patent. IMPRESSION: No large vessel occlusion. No intracranial aneurysm. ACT 112: Negative or not required by law. Electronically signed by: Tomy Ellsworth M.D. 08/13/2023 7:19 PM Neck CTA 08/13/23 18:03 CT ANGIOGRAPHY OF THE NECK WITH CONTRAST CLINICAL HISTORY: word finding difficulty COMPARISON STUDY: None available at time of interpretation. Technique: CT angiography of the carotid and vertebral arteries was obtained using Optiray and 3D reconstruction on an independent workstation. NASCET criteria was utilized. Automated exposure control was utilized for the study. A dose lowering technique was utilized adhering to the principles of ALARA. Findings: Visualized portions of the lung apices are unremarkable. There is no cervical lymphadenopathy. There is no cervical spine fracture. The left vertebral artery is diminutive on a congenital basis. The origin of the left vertebral artery is not well assessed on this exam. The right vertebral artery is dominant and patent. There are no stenoses within this vessel. There is no dissection or aneurysm within the neck. There is mild plaque within the bilateral carotid bifurcations without stenosis. Mixing artifact within the proximal left internal carotid artery is incidentally noted. IMPRESSION: Mild plaque within the bilateral carotid bifurcations without significant stenosis. ACT 112: Negative or not required by law. Electronically signed by: Tomy Ellsworth M.D. 08/13/2023 7:11 PM Brain MRI 08/14/23 00:01 Exam(s): MRI HEAD W/WO Contrast IV Amt: 12cc gadavist EXAM: MR Head Without and With Intravenous Contrast CLINICAL HISTORY: cva. TECHNIQUE: Magnetic resonance images of the head/brain without and with intravenous contrast in multiple planes. CONTRAST: 12cc Gadavist of IV contrast COMPARISON: CT brain 08/13/2023. FINDINGS: Brain: No acute stroke. Prominent perivascular space inferior left basal ganglia. No mass lesion. Curvilinear enhancement in the posterior inferior right frontal lobe, likely a developmental venous anomaly. No abnormal parenchymal or leptomeningeal enhancement postcontrast. No acute hemorrhage or abnormal extra-axial fluid collection. Ventricles: No midline shift. No ventriculomegaly. Bones/joints: Unremarkable. No acute fracture. Sinuses: Unremarkable as visualized. No acute sinusitis. Mastoid air cells: Unremarkable as visualized. No mastoid effusion. Orbits: Unremarkable as visualized. IMPRESSION: No acute stroke or hemorrhage. Perivascular space in the inferior left basal ganglia. Probably incidental developmental venous anomaly in the inferior right frontal lobe. Electronically signed by: Berlin Dunne M.D. 08/14/23 02:33 AM
--- NOTE | 2023-08-14 12:35 | Hospitalist Progress Note ---
Date of Service August 14, 2023 Assessment & Plan (1) CVA (cerebral vascular accident): Plan: Patient is a 62 yr male with past medical history significant for hyperlipidemia, severe obstructive sleep apnea on BiPAP, thoracic aortic aneurysm without rupture, hypertension, obesity, chronic pain of left knee, paresthesias of both feet, postlaminectomy syndrome was brought in because of right flank pain since last night. Patient has history of kidney stones and usually passes them but this pain was not getting better so he came to the ER. CT abdomen pelvis showed 4 mm bladder stone suggesting recently passed right ureteral stone. And left-sided nephrolithiasis. No hydronephrosis. In the ER the patient passed the stone. And he has some blood in the urine. When he was in the bathroom he felt little dizzy. Currently resting comfortably. The flank pain is resolved. But he also having occasional word finding difficulties since last 1 month. Imaging studies in the ER showed 8 mm hypodensity within left temporal lobe/posterior left basal ganglia questionable significance and may represent small vessel disease however a small age-indeterminate infarct also appears similar. Because this lesion is in same area of his symptoms patient is getting admitted for full stroke workup. Currently denies any headache. No blurred visions . No earache. No runny nose or sore throat. No cough. No fevers. No difficulty swallowing. Patient states he always has some chest pain and shortness of breath. But states he can walk 1 mile without stopping. Difficulty climbing stairs because of his knee problems. Currently no nausea. No abdominal pain. Resting comfortably and hemodynamically stable. Right flank pain Nephrolithiasis --CT ABD:There is mild fullness within the right renal collecting system and right ureter without mariana hydronephrosis. In conjunction with the 4 mm bladder stone, this suggests a recently passed right ureteral stone. Left-sided nephrolithiasis. No hydronephrosis. No bowel wall thickening or obstruction. Normal appendix. Mild bladder wall thickening with adjacent fat stranding. This could represent a cystitis. Recommend correlation with urinalysis. -- Spontaneously passed ureteral stone --Empirically received IV Rocephin Advised to follow-up with urology as outpatient Presyncope Ruled out CVA Subcortical hypodensity--incidental finding on MRI Having occasional word finding difficulties since last 1 month --CTA neckMild plaque within the bilateral carotid bifurcations without significant stenosis. --CTA head no significant stenosis --CT head. 8 mm hypodensity within the left temporal lobe/posterior left basal ganglia. This is of questionable significance and may represent small vessel disease. However, a small age indeterminate infarct could appear similar. --Brain MRI:No acute stroke or hemorrhage. Perivascular space in the inferior left basal ganglia. Probably incidental developmental venous anomaly in the inferior right frontal lobe. --ECHO:unchanged from before --HbA1c 5.5 --Normal lipid panel Appreciate neurology input Continue aspirin, statin Plan to be discharged home today Obstructive sleep apnea Continue BiPAP HS Hyperlipidemia Normal lipid panel Continue statin Hypertension Continue lisinopril Postlaminectomy syndrome Continue home medications History of PE after back surgery in 2019 Was on anticoagulation for 3 months PVCs with bigeminy on EKG Follows with cardiology -ECHO: Compared to prior study, no significant change. Injection of contrast documented no interatrial shunt. Left ventricle is borderline dilated. Left ventricle systolic pressure is normal. EF 50 to 55%. Left ventricle wall motion is normal. Left ventricle is mildly dilated. Right ventricle systolic function is normal. Mild mitral regurgitation. Mild aortic root dilatation. Aortic root diameter 4.2 cm. Inferior vena cava is mildly dilated. Obesity BMI 39.8 DVT Px: SCDs Code Status Full code Admission and Anticipated Discharge Date Admission Date: August 13, 2023 Subjective Patient is seen and examined at bedside Right flank pain resolved Denies any nausea, vomiting, chest pain, dizziness, abdominal pain, dyspnea Discussed with neurology today Patient offers no other complaints Prefers to be discharged home today Review of Systems Review of Systems: All systems reviewed & are unremarkable except as noted in Subjective Physical Exam Physical Exam: Physical Exam: Vitals signs as noted above General Appearance:Obese, no apparent distress Head: normocephalic, Atraumatic Eyes: normal inspection, EOMI Neck: supple, Trachea midline Respiratory/Chest: Normal breath sounds, CTA, No accessory muscle use Cardiovascular: S1, S2, No murmur Abdomen/GI:Soft, Non tender, Bowel sounds present Extremities/Musculoskeletal:normal inspection, no edema Neurologic/Psych:AAOX3, grossly no focal neurological deficits Skin: normal color, warm Results & Data Results & Data Vital Signs (Past 12 Hours) Vital Signs Temp Pulse Pulse Resp BP Pulse Ox O2 Del Method 08/14/23 12:06 36.5 C 67 16 175/67 H 98 08/14/23 11:22 Room Air 08/14/23 11:02 36.5 C 16 175/67 H 98 Room Air 08/14/23 08:08 63 Laboratory Results Short CBC 08/13/23 08/14/23 Range/Units 13:00 04:39 WBC 5.19 5.38 (4.8-10.8) K/ul Hgb 14.9 13.0 L (14.0-18.0) g/dl Hct 43.0 38.3 L (42.0-52.0) % Plt Count 184 155 (130-400) K/uL BMP 08/13/23 08/14/23 13:00 04:39 Sodium 141 141 Potassium 3.6 3.6 Chloride 107 108 H Carbon Dioxide 26 26 BUN 8 10 Creatinine 0.93 0.77 Glucose 106 H 139 H Calcium 9.2 8.9 Liver Function 08/13/23 Range/Units 13:00 Total Bilirubin 2.0 H (0.2-1.0) mg/dl AST 20 (13-39) U/L ALT 21 (7-52) U/L Alkaline Phosphatase 83 (34-104) U/L Albumin 4.0 (3.4-5.0) gm/dl Urine 08/13/23 Range/Units Unknown Urine Color Dark Yellow Urine Appearance Turbid A (Clear) Urine pH 5.0 (4.5-7.5) Ur Specific [place] 1.023 (1.000-1.030) Urine Protein 1+ H (Negative) Urine Glucose (UA) Negative (Negative)
[2023-08-14] MEDS ORDERED: STROKE PATIENT DISCHARGE STA (12:49)
--- NOTE | 2023-08-14 12:51 | Discharge Summary ---
Date of Service August 14, 2023 Admission HPI Per Admitting Provider 62-year-old male with past medical history significant for hyperlipidemia, severe obstructive sleep apnea on BiPAP, thoracic aortic aneurysm without rupture, hypertension, obesity, chronic pain of left knee, paresthesias of both feet, postlaminectomy syndrome was brought in because of right flank pain since last night. Patient has history of kidney stones and usually passes them but this pain was not getting better so he came to the ER. CT abdomen pelvis showed 4 mm bladder stone suggesting recently passed right ureteral stone. And left- sided nephrolithiasis. No hydronephrosis. In the ER the patient passed the stone. And he has some blood in the urine. When he was in the bathroom he felt little dizzy. Currently resting comfortably. The flank pain is resolved. But he also having occasional word finding difficulties since last 1 month. Imaging studies in the ER showed 8 mm hypodensity within left temporal lobe/posterior left basal ganglia questionable significance and may represent small vessel disease however a small age-indeterminate infarct also appears similar. Because this lesion is in same area of his symptoms patient is getting admitted for full stroke workup. Currently denies any headache. No blurred visions . No earache. No runny nose or sore throat. No cough. No fevers. No difficulty swallowing. Patient states he always has some chest pain and shortness of breath. But states he can walk 1 mile without stopping. Difficulty climbing stairs because of his knee problems. Currently no nausea. No abdominal pain. Resting comfortably and hemodynamically stable. Past medical history. As mentioned above Past surgical history. Colonoscopy. Cystoscopy. Neck surgery. Tonsillectomy. Removal of thyroid cyst. Multiple procedures on left shoulder. Social history. . Quit smoking in 2006. Smoked 1.5 packs a day for 36 years. No alcohol use. No drug use. Family history. Brother has JAYMIE. Admission Exam Per Admitting Provider General- Not in distress Head- atraumatic Eyes- PERRL, EOMI. ENT- oropharynx clear Neck- supple, no JVD.no carotid bruit Lungs- clear to auscultation no wheezing or crackles. Heart- regular rhythm; no murmur, no gallop. Abdomen- normal bowel sounds, soft, nontender, no distension. Extremities- no pretibial edema, no erythema seen. Neuro- alert, oriented x 3; PERRL, EOMI; no facial palsy; no dysarthria; motor 5/5 bilaterally; no pronator drift, co ordination of movements normal, sensations intact, position sense intact Skin- warm & dry Principal Diagnosis Right flank pain Nephrolithiasis Presyncope Subcortical hypodensity on MRI Discharge Data Allergies Allergy/AdvReac Type Severity Reaction Status Date / Time No Known Drug Allergies Allergy 0 Verified 08/13/23 21:12 Consultations 08/13/23 19:44 ED Decision to Admit Stat 08/14/23 08:00 Consult Neurology Routine Procedures Performed Laboratory Results WBC 5.38 K/ul (4.8-10.8) 08/14/23 04:39 RBC 4.09 M/uL (4.70-6.10) L 08/14/23 04:39 Hgb 13.0 g/dl (14.0-18.0) L 08/14/23 04:39 Hct 38.3 % (42.0-52.0) L 08/14/23 04:39 MCV 93.6 fL (80.0-100.0) 08/14/23 04:39 MCH 31.8 pg (25.0-34.0) 08/14/23 04:39 MCHC 33.9 g/dL (32.0-36.0) 08/14/23 04:39 RDW Std Deviation 43.9 fL (36.4-46.3) 08/14/23 04:39 RDW Coeff of Porfirio 12.9 % (11.5-14.5) 08/14/23 04:39 Plt Count 155 K/uL (130-400) 08/14/23 04:39 MPV 11.5 fL (9.4-12.4) 08/14/23 04:39 Immature Gran % (Auto) 0.4 % 08/14/23 04:39 Neut % (Auto) 61.1 % 08/14/23 04:39 Lymph % (Auto) 27.5 % 08/14/23 04:39 Mcduffie % (Auto) 7.4 % 08/14/23 04:39 Eos % (Auto) 3.2 % 08/14/23 04:39 Baso % (Auto) 0.4 % 08/14/23 04:39 Neut # (Auto) 3.29 K/uL (1.40-6.50) 08/14/23 04:39 Lymph # (Auto) 1.48 K/uL (1.20-3.40) 08/14/23 04:39 Mcduffie # (Auto) 0.40 K/uL (0.11-0.59) 08/14/23 04:39 Eos # (Auto) 0.17 K/uL (0.00-0.50) 08/14/23 04:39 Baso # (Auto) 0.02 K/uL (0.00-0.20) 08/14/23 04:39 Immature Gran # (Auto) 0.02 K/uL (0.01-0.20) 08/14/23 04:39 Sodium 141 mmol/L (136-145) 08/14/23 04:39 Potassium 3.6 mmol/L (3.5-5.1) 08/14/23 04:39 Chloride 108 mmol/L (98-107) H 08/14/23 04:39 Carbon Dioxide 26 mmol/L (21-32) 08/14/23 04:39 Anion Gap 7 (3-11) 08/14/23 04:39 BUN 10 mg/dl (6-23) 08/14/23 04:39 Creatinine 0.77 mg/dl (0.6-1.4) 08/14/23 04:39 Est Cr Clr Drug Dosing 141.7 ml/min 08/14/23 04:39 Est GFR ( Amer) 114.3 ml/min 08/14/23 04:39 Est GFR (Non-Af Amer) 98.6 ml/min 08/14/23 04:39 BUN/Creatinine Ratio 13.0 (10-20) 08/14/23 04:39 Glucose 139 mg/dl (70-99(Fasting)) H 08/14/23 04:39 Estimat Average Glucose 111 mg/dl 08/14/23 04:39 Hemoglobin A1c 5.5 % (4.5-5.6) 08/14/23 04:39 Calcium 8.9 mg/dl (8.6-10.3) 08/14/23 04:39 Magnesium 1.8 mg/dl (1.7-2.4) 08/14/23 04:39 Total Bilirubin 2.0 mg/dl (0.2-1.0) H 08/13/23 13:00 AST 20 U/L (13-39) 08/13/23 13:00 ALT 21 U/L (7-52) 08/13/23 13:00 Alkaline Phosphatase 83 U/L (34-104) 08/13/23 13:00 Total Protein 7.0 gm/dl (6.0-8.3) 08/13/23 13:00 Albumin 4.0 gm/dl (3.4-5.0) 08/13/23 13:00 Globulin 3.0 gm/dl (2.5-4.0) 08/13/23 13:00 Albumin/Globulin Ratio 1.3 (0.9-2) 08/13/23 13:00 Triglycerides 83 mg/dl (0-150) 08/14/23 04:39 Cholesterol 105 mg/dl (0-200) 08/14/23 04:39 LDL Cholesterol, Calc 54 mg/dl 08/14/23 04:39 VLDL Cholesterol, Calc 17 mg/dl (0-30) 08/14/23 04:39 HDL Cholesterol 34 mg/dl 08/14/23 04:39 Cholesterol/HDL Ratio 3.1 (0-5) 08/14/23 04:39 Urine Color Dark Yellow 08/13/23 Unknown Urine Appearance Turbid (Clear) A 08/13/23 Unknown Urine pH 5.0 (4.5-7.5) 08/13/23 Unknown Ur Specific [place] 1.023 (1.000-1.030) 08/13/23 Unknown Urine Protein 1+ (Negative) H 08/13/23 Unknown Urine Glucose (UA) Negative (Negative) 08/13/23 Unknown Urine Ketones Trace (Negative) H 08/13/23 Unknown Urine Blood 3+ (Negative) H 08/13/23 Unknown Urine Nitrite Negative (Negative) 08/13/23 Unknown Urine Bilirubin 1+ (Negative) H 08/13/23 Unknown Urine Urobilinogen Negative (Negative) 08/13/23 Unknown Ur Leukocyte Esterase Trace (Negative) H 08/13/23 Unknown Urine WBC (Auto) 5-10 /hpf (0-5) H 08/13/23 Unknown Urine RBC (Auto) 10-30 /hpf (0-4) H 08/13/23 Unknown U Hyaline Cast (Auto) 5-10 /lpf (0-5) H 08/13/23 Unknown U Epithel Cells (Auto) >30 /lpf (0-5) H 08/13/23 Unknown Urine Bacteria (Auto) Negative (Negative) 08/13/23 Unknown Urine Crystals Not Reportable 08/13/23 Unknown Calcium Oxalate Crystal Present (None Prsent) A 08/13/23 Unknown Urine Mucus Present (None Prsent) A 08/13/23 Unknown Impressions Abdomen/Pelvis CT 08/13/23 12:[address] WITHOUT CONTRAST CT DOSE: 1507.39 mGy.cm HISTORY: RIGHT FLANK PAIN, HX OF STONES TECHNIQUE: Multiaxial CT images of the abdomen and pelvis were performed without contrast. A dose lowering technique was utilized adhering to the principles of ALARA. COMPARISON STUDY: Abdomen and pelvis CT 12/30/2016. FINDINGS: Mild dependent changes seen at the lung bases. No pneumoperitoneum. No pneumatosis. L3-L5 posterior decompression and fusion with pedicle screws and rods. No acute fractures identified. The unenhanced liver, gallbladder, pancreas, spleen, and left adrenal gland unremarkable. Small right adrenal gland nodules remain stable and are likely benign. Moderate calcified plaque within the normal caliber abdominal aorta. No retroperitoneal or pelvic lymphadenopathy. No pelvic free fluid. Suboptimal evaluation for bowel pathology due to the lack of intravenous and oral contrast. However, there is no definite bowel wall thickening or obstruction. Colonic diverticulosis. No evidence for acute diverticulitis. Normal appendix. There is a 9 mm stone within the upper pole of the left kidney. No right renal calculi. However, there is mild right perinephric edema and right periureteral edema. There is mild fullness within the right renal collecting system and right ureter without mariana hydronephrosis. There is mild bladder wall thickening with adjacent fat stranding. There is a 4 mm stone within the bladder base. IMPRESSION: 1. There is mild fullness within the right renal collecting system and right ureter without mariana hydronephrosis. In conjunction with the 4 mm bladder stone, this suggests a recently passed right ureteral stone. 2. Left-sided nephrolithiasis. No hydronephrosis. 3. No bowel wall thickening or obstruction. 4. Normal appendix. 5. Mild bladder wall thickening with adjacent fat stranding. This could represent a cystitis. Recommend correlation with urinalysis. ACT 112: Negative or not required by law. Electronically signed by: Abdulaziz Burton M.D. 08/13/2023 1:[address] 08/13/23 18:03 CT OF THE HEAD WITHOUT CONTRAST CLINICAL HISTORY: word finding difficulty COMPARISON STUDY: No previous studies for comparison. TECHNIQUE: Helical axial images of the head were obtained without IV contrast. Automated exposure control was utilized for the study. A dose lowering technique was utilized adhering to the principles of ALARA. FINDINGS: No acute intracranial hemorrhage, midline shift or mass effect is present. The ventricular system is unremarkable. The basal cisterns are patent. No extra-axial collections are present. An 8 mm hypodensity within the left temporal lobe/posterior left basal ganglia on image 11 of 32 is of questionable significance. There are no significant calvarial abnormalities. IMPRESSION: 1. No acute intracranial hemorrhage or mass effect. 2. 8 mm hypodensity within the left temporal lobe/posterior left basal ganglia. This is of questionable significance and may represent small vessel disease. However, a small age indeterminate infarct could appear similar. ACT 112: Negative or not required by law. Electronically signed by: Tomy Ellsworth M.D. 08/13/2023 7:07 PM Head CTA 08/13/23 18:03 CTA ANGIOGRAPHY OF THE HEAD CLINICAL HISTORY: word finding difficulty COMPARISON STUDY: No previous studies for comparison. TECHNIQUE: Helical axial images of the head were obtained following uneventful intravenous administration of 118 cc of Optiray. Sagittal and coronal reconstructions were viewed as well as maximal intensity projections on an independent 3-D workstation. Automated exposure control was utilized for the study. A dose lowering technique was utilized adhering to the principles of ALARA. 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 The bilateral M1, M2, A1 and A2 segments are pa tent. There is no large vessel occlusion. No intracranial aneurysm. Left vertebral artery is diminutive on a congenital basis and ends in PICA. The basilar artery is patent. The bilateral posterior cerebral arteries are patent. IMPRESSION: No large vessel occlusion. No intracranial aneurysm. ACT 112: Negative or not required by law. Electronically signed by: Tomy Ellsworth M.D. 08/13/2023 7:19 PM Neck CTA 08/13/23 18:03 CT ANGIOGRAPHY OF THE NECK WITH CONTRAST CLINICAL HISTORY: word finding difficulty COMPARISON STUDY: None available at time of interpretation. Technique: CT angiography of the carotid and vertebral arteries was obtained using Optiray and 3D reconstruction on an independent workstation. NASCET criteria was utilized. Automated exposure control was utilized for the study. A dose lowering technique was utilized adhering to the principles of ALARA. Findings: Visualized portions of the lung apices are unremarkable. There is no cervical lymphadenopathy. There is no cervical spine fracture. The left vertebral artery is diminutive on a congenital basis. The origin of the left vertebral artery is not well assessed on this exam. The right vertebral artery is dominant and patent. There are no stenoses within this vessel. There is no dissection or aneurysm within the neck. There is mild plaque within the bilateral carotid bifurcations without stenosis. Mixing artifact within the proximal left internal carotid artery is incidentally noted. IMPRESSION: Mild plaque within the bilateral carotid bifurcations without si gnificant stenosis. ACT 112: Negative or not required by law. Electronically signed by: Tomy Ellsworth M.D. 08/13/2023 7:11 PM Brain MRI 08/14/23 00:01 Exam(s): MRI HEAD W/WO Contrast IV Amt: 12cc gadavist EXAM: MR Head Without and With Intravenous Contrast CLINICAL HISTORY: cva. TECHNIQUE: Magnetic resonance images of the head/brain without and with intravenous contrast in multiple planes. CONTRAST: 12cc Gadavist of IV contrast COMPARISON: CT brain 08/13/2023. FINDINGS: Brain: No acute stroke. Prominent perivascular space inferior left basal ganglia. No mass lesion. Curvilinear enhancement in the posterior inferior right frontal lobe, likely a developmental venous anomaly. No abnormal parenchymal or leptomeningeal enhancement postcontrast. No acute hemorrhage or abnormal extra-axial fluid collection. Ventricles: No midline shift. No ventriculomegaly. Bones/joints: Unremarkable. No acute fracture. Sinuses: Unremarkable as visualized. No acute sinusitis. Mastoid air cells: Unremarkable as visualized. No mastoid effusion. Orbits: Unremarkable as visualized. IMPRESSION: No acute stroke or hemorrhage. Perivascular space in the inferior left basal ganglia. Probably incidental developmental venous anomaly in the inferior right frontal lobe. Electronically signed by: Berlin Dunne M.D. 08/14/23 02:33 AM Ordered Studies 08/13/23 12:53 CT stones [CT abd pelvis wo con] Stat 08/13/23 18:03 CT angio head w con Stat CT angio neck with con Stat CT head/brain wo con Stat 08/14/23 00:01 MR brain wo/w con Urgent Hospital Course (1) CVA (cerebral vascular accident): Patient is a 62 yr male with past medical history significant for hyperlipidemia, severe obstructive sleep apnea on BiPAP, thoracic aortic aneurysm without rupture, hypertension, obesity, chronic pain of left knee, paresthesias of both feet, postlaminectomy syndrome was brought in because of right flank pain since last night. Patient has history of kidney stones and usually passes them but this pain was not getting better so he came to the ER. CT abdomen pelvis showed 4 mm bladder stone suggesting recently passed right ureteral stone. And left-sided nephrolithiasis. No hydronephrosis. In the ER the patient passed the stone. And he has some blood in the urine. When he was in the bathroom he felt little dizzy. Currently resting comfortably. The flank pain is resolved. But he also having occasional word finding difficulties since last 1 month. Imaging studies in the ER showed 8 mm hypodensity within left temporal lobe/posterior left basal ganglia questionable significance and may represent small vessel disease however a small age-indeterminate infarct also appears similar. Because this lesion is in same area of his symptoms patient is getting admitted for full stroke workup. Currently denies any headache. No blurred visions . No earache. No runny nose or sore throat. No cough. No fevers. No difficulty swallowing. Patient states he always has some chest pain and shortness of breath. But states he can walk 1 mile without stopping. Difficulty climbing stairs because of his knee problems. Currently no nausea. No abdominal pain. Resting comfortably and hemodynamically stable. Right flank pain Nephrolithiasis --CT ABD:There is mild fullness within the right renal collecting system and right ureter without mariana hydronephrosis. In conjunction with the 4 mm bladder stone, this suggests a recently passed right ureteral stone. Left-sided nephrolithiasis. No hydronephrosis. No bowel wall thickening or obstruction. Normal appendix. Mild bladder wall thickening with adjacent fat stranding. This could represent a cystitis. Recommend correlation with urinalysis. -- Spontaneously passed ureteral stone --Empirically received IV Rocephin Advised to follow-up with urology as outpatient Presyncope Ruled out CVA Subcortical hypodensity--incidental finding on MRI Having occasional word finding difficulties since last 1 month --CTA neckMild plaque within the bilateral carotid bifurcations without significant stenosis. --CTA head no significant stenosis --CT head. 8 mm hypodensity within the left temporal lobe/posterior left basal ganglia. This is of questionable significance and may represent small vessel disease. However, a small age indeterminate infarct could appear similar. --Brain MRI:No acute stroke or hemorrhage. Perivascular space in the inferior left basal ganglia. Probably incidental developmental venous anomaly in the inferior right frontal lobe. --ECHO:unchanged from before --HbA1c 5.5 --Normal lipid panel Appreciate neurology input Continue aspirin, statin Plan to be discharged home today Obstructive sleep apnea Continue BiPAP HS Hyperlipidemia Normal lipid panel Continue statin Hypertension Continue lisinopril Postlaminectomy syndrome Continue home medications History of PE after back surgery in 2019 Was on anticoagulation for 3 months PVCs with bigeminy on EKG Follows with cardiology -ECHO: Compared to prior study, no significant change. Injection of contrast documented no interatrial shunt. Left ventricle is borderline dilated. Left ventricle systolic pressure is normal. EF 50 to 55%. Left ventricle wall motion is normal. Left ventricle is mildly dilated. Right ventricle systolic function is normal. Mild mitral regurgitation. Mild aortic root dilatation. Aortic root diameter 4.2 cm. Inferior vena cava is mildly dilated. Obesity BMI 39.8 DVT Px: SCDs Code Status Full code Total Time Total Time Spent Total Time Spent (In Minutes): 55 minutes Discharge Plan Discharge Items Patient Disposition: Home - Self-Care Reason For Visit: KIDNEY STONE AND STROKE LIKE SYMPTOMS Discharge Diagnosis: Right flank pain Nephrolithiasis Presyncope Subcortical hypodensity on MRI Activity: Per Instructions section Exercise/Sports: Gradually increase as tolerated Non-emergency contact: Primary Care Provider and Urologist Call non-emergency contact if: you have any medication questions, your symptoms worsen, your pain is concerning for you and you have a fever Follow-up/Referrals: Tomasa Vela MD [Primary Care Provider] - Diet: Heart Healthy Addtl Attending Provider Instructions: Follow-up with your primary care physician Dr. Vela in 1 week Follow-up with your urologist for further evaluation management of kidney stones as advised. Follow-up with your neurologist as needed. -- Complete antibiotic course cefdinir for 2 more days as prescribed. Seek immediate medical attention if your symptoms reoccur or worsen Please take all medications as instructed on discharge list below. Please call if you have any questions or problems. You can reach a [facility] hospitalist on duty at [facility] 24 hours a day by calling [phone] Pending Studies at Discharge: No Stand-Alone Forms: My [facility], Smoking Cessation Medications and DC Order Prescriptions: New cefdinir 300 mg capsule 300 mg PO BID Qty: 4 0RF Rx Instructions: Start taking from 08/15/23 Continued magnesium 200 mg tablet 200 mg PO DAILY lisinopril 10 mg tablet 10 mg PO QAM Qty: 90 3RF vitamin B complex [B Complex-Vitamin B12] Tablet 1 tab PO QAM coenzyme Q10 [CoQ-10] 100 mg capsule 100 mg PO QAM glucosamine-chondroitin [Osteo Bi-Flex] 250-200 mg tablet 2 tab PO QAM Rx Instructions: give after food/meal aspirin [Adult Low Dose Aspirin] 81 mg tablet,delayed release (DR/EC) 81 mg PO QAM atorvastatin 20 mg tablet 20 mg PO QAM acetaminophen [Tylenol Extra Strength] 500 mg Tablet 1,000 mg PO Q6H PRN (Reason: Pain) ferrous sulfate [iron] 325 mg (65 mg iron) Tablet 325 mg PO DAILY methocarbamol 750 mg tablet 1,500 mg PO TID PRN (Reason: Muscle Spasm) Discharge Orders: Discharge Order (Routine); Ordered 08/14/23 Ordered By: Hunter Gimenez Admission Data Admit Date/Time: 08/13/23 22:17 Attending Provider: Hunter Gimenez Admit Provider: Colby Cali Primary Care Provider: Tomasa Vela Other Providers: Colby Cali; Chitra Snell; Dylon Narayan; Chitra Martinez; John Ortiz; Duc Carpenter; Barrera Bear; Bang Bradley; Morena Rosa; Ronnie Villarreal; Todd Dsouza; Odalys Barbosa; Leonidas Mckeon; Sisi Menezes; Jennifer Salazar; Bang Mendoza
[2023-08-14] MEDS ORDERED: ALPRAZolam 0.5 MG TABLET PO ONE (14:00)
== END 2023-08-14 13:04 | disposition home or self-care (01) ==
LOC: ED 12:47 → SUATTDRO 22:17 → EDINP 22:17 → INTOOBSV 22:17 → EDINP 23:02 → 2S 08-14 11:24